=== PATIENT | male | born 1975 | race Caucasian/White ===

== ENCOUNTER 2016-08-07 12:59 | Inpatient (IN) | payer MEDICAID ==
[~2016-08-07] VITALS: Ht 172.7 cm; Wt 66.3 kg
--- NOTE | ~2016-08-07 | HEMODYNAMI ---
PATIENT:ESTRELLA JIMÉNEZ MEDICAL RECORD: [id number] : 77 [id number] ADMISSION DATE: 08/07/16 Generatedon:08/09/201611:55 Patient name: ESTRELLA JIMÉNEZ Patient #: [id number] SSN: : [id number] Date of study: 08/09/2016 Page: Of Hemodynamic Procedure Report Patient Data Patient Demographics Procedure consent was obtained First Name: ESTRELLA Gender: Male Last Name: TINO : 1975 Middle Initial: YOBANI Age: 41 year(s) Patient #: [id number] Race: Unknown Additional ID: [id number] Contact details [address]: [address] [place] Zip code: [address] Admission Admission Data Admission Date: 08/07/2016 Admission Time: 12:59 Room #: D2134 Height (in.): 68 BSA: 1.76 (m2) Height (cm.): 172.72 BMI: 21.29 (kg/m2) Weight (lbs.): 140 Weight (kg.): 63.5 Procedure Procedure Types Cath Procedure Peripheral Cath Diagnostic Procedure Cath Peripheral Biliary Biliary Drain External Procedure Description Procedure Date Procedure Date: 08/09/2016 Procedure Start Time: 10:56 Procedure Staff Name Function Franco Aguilar MD Performing Physician Kumar Souza RT Scrub Rafaela Pal RN Nurse Ayaka Daniel RT Fence Making Machine Operator Ayaka Daniel RT Monitor Mayar Harris RN Nurse Catalina Ortiz CRNA Additional personnel Procedure Data Cath Procedure Fluoroscopy Diagnostic fluoroscopy Total fluoroscopy Time: time: 19.1 min 19.1 min Diagnostic fluoroscopy Total fluoroscopy dose: 691 dose: 691 mGy mGy Contrast Material Contrast Material Type Amount (ml) Isovue 300 55 Diagnostic catheters Device Type Used For End Catheter Placement Merit Impress KA 2 5Fr 40CM catheter Hemodynamics Rest BSA: 1.76 (m2) O2 Consumption: Estimated: 208.37 (ml/min) O2 Consumption indexed : Estimated:118.39 (ml/min/m) Heart Rate: 60 (bpm) Snapshots Pre Cath Intra NCS Post Cath Vital Signs Time Heart Resp SPO2 NIBP (mmHg) Rhythm Pain Sedation Rate (ipm) (%) Status Level (bpm) 10:44:55 100 124/64(85) NSR 0 (11) 10(A) , No pain 10:49:07 70 9 99 111/70(77) NSR 0 (11) 10(A) , No pain 10:53:17 65 18 99 105/68(89) NSR 0 (11) 10(A) , No pain 10:57:21 77 10 98 113/76(92) NSR 0 (11) 10(A) , No pain 11:01:33 74 6 97 109/67(87) NSR 0 (11) 10(A) , No pain 11:05:41 74 6 97 112/67(84) NSR 0 (11) 10(A) , No pain 11:09:47 74 8 97 122/77(93) NSR 0 (11) 10(A) , No pain 11:13:56 73 8 96 131/75(103) NSR 0 (11) 10(A) , No pain 11:18:08 71 7 96 127/76(105) NSR 0 (11) 10(A) , No pain 11:22:18 70 5 96 124/82(103) NSR 0 (11) 10(A) , No pain 11:26:30 69 6 97 125/73(95) NSR 0 (11) 10(A) , No pain 11:30:38 68 5 95 124/80(113) NSR 0 (11) 10(A) , No pain 11:34:50 71 3 97 119/69(106) NSR 0 (11) 10(A) , No pain 11:38:58 69 5 96 129/75(102) NSR 0 (11) 10(A) , No pain 11:43:08 67 6 95 124/77(100) NSR 0 (11) 10(A) , No pain 11:47:15 71 19 95 132/83(109) NSR 0 (11) 10(A) , No pain 11:51:27 82 5 96 133/80(96) NSR 0 (11) 10(A) , No pain 11:54:11 75 10 98 142/83(118) NSR 0 (11) 10(A) , No pain Procedure Log Time Note 10:04:33 Patient Height : 68 cm 10:04:37 Patient Weight : 140 kg 10:06:36 Use device set IR Diagnostic 10:06:38 Sterile Angiographic Pack opened to sterile field. 10:06:39 Bag Decanter opened to sterile field. 10:06:50 CHIBA 22 X 15 needle opened to sterile field. 10:20:17 Time tracking: Regular hours 10:21:15 Dr Aguilar in the room. Talking with patient about procedure. 10:21:40 IV patent on arrival in port with 0.9% NaCl at KVO. 10:23:04 Plan of Care:Hemodynamics will remain stable., Cardiac rhythm will remain stable., Comfort level will be maintained., Respiratory function will remain adequate., Patient/ family verbilizes understanding of procedure., Procedure tolerated without complication., Recovers from procedure without complications.. 10:23:16 Signed procedure consent form obtained from patient. 10:23:26 H&P Date Dictated: 08/09/2016 Within 30 days and on chart.. 10:23:31 Pre-procedure instructions explained to patient. 10:23:32 Pre-op teaching completed and patient verbalized understanding. 10:23:34 Family in waiting room. 10:23:37 Patient NPO since Midnight. 10:24:16 Is the patient allergic to Iodine/contrast media? No. 10:24:39 Right abdomen area was prepped with chlora-prep and draped in sterile fashion 10:26:38 KIT, INTRODUCER ACCUSTICK II W/C opened to sterile field. 10:27:41 Sharps counted by scrub and verified by R.N. 10:27:42 - 10:28:06 SEE ANESTHESIA NOTES FOR MONITORING OF PATIENT DURING PROCEDURE 10:43:37 ECG and BP/O2 sat monitors applied to patient. 10:43:38 Vital chart was started 10:43:41 Baseline sample Acquired. 10:43:42 Full Disclosure recording started 10:43:43 - 10:54:40 Physician arrived 10:55:02 --------ALL STOP TIME OUT------ 10:55:03 Final Timeout: patient, procedure, and site verified with staff and physician. All members of the team are in agreement. 10:56:47 Procedure started. 10:56:53 Local anesthetic to Abdominal area with Lidocaine 1% by Franco Aguilar MD.INITIAL ACCESS ONLY 10:57:20 Physical assessment completed. ASA score P 3 - A patient with severe systemic disease as per Catalina Ortiz CRNA. 10:57:27 Sedation plan: TIVA Propofol 11:07:19 BAG, DRAINAGE EMPTY 600ML W/DERECK opened to sterile field. 11:08:09 STOPCOCK 3-WAY LARGE BORE opened to sterile field. 11:11:45 CHIBA 22 X 15 needle opened to sterile field. 11:32:12 EV3 NITINOL .018 80CM guide wire opened to sterile field. 11:35:07 Terumo ANGLE 180L glide wire opened to sterile field. 11:37:29 Terumo TORQUE DEVICE PLASTIC .038 opened to sterile field. 11:37:39 Terumo ANGLED SS 260CM glide wire opened to sterile field. 11:39:12 Cook DOC .035 guide wire opened to sterile field. 11:39:24 A Merit Impress KA 2 5Fr 40CM catheter was advanced over the wire and used for . 11:42:49 Cook BILIARY 10.2 FR drainage catheter opened to sterile field. 11:51:08 Procedure ended.(Physican Out) 11:51:14 Fluoroscopy time 19.10 minutes. 11:51:22 Fluoroscopy dose: 691 mGy 11:51:22 Flurop Dose total: 691 11:51:26 Contrast amount:Isovue 300 55ml. 11:51:28 Sharps counted by scrub and verified by R.N. 11:51:43 Procedure and supply charges have been captured, reviewed, submitted an d are correct. 11:55:52 Vital chart was stopped Device Usage Item Name Manufacture Quantity Catalog Hospital Part Current Minimal Lot# / Number Charge Number Stock Stock Serial# Code Diann Cardinal 1 [id number] 5 Angiographic Health Pack Bag Decanter Microtek 1 2001S [id number] 64127 892178 5 Medical Inc. CHIBA 22 X Cook Medical 2 [id number] 389233 666470 5 15 needle KIT, [place] 1 [id number] 607683 543392 535107 5 INTRODUCER Scientific ACCUSTICK II W/C BAG, Merit 1 [id number] 714581 116253 861513 5 DRAINAGE Medical EMPTY 600ML W/DERECK STOPCOCK Cook Medical 1 [id number] 386614 4366 739499 5 3-WAY LARGE BORE EV3 NITINOL Ev3 1 [id number] 490144 515034 5 .018 80CM guide wire Terumo ANGLE Terumo 1 [id number] 734349 279218 651818 5 180L glide wire Terumo [place] 1 TD01 376125 721706 770330 5 TORQUE Scientific DEVICE PLASTIC .038 Terumo Terumo 1 [id number] 366241 789765 859396 5 ANGLED SS 260CM glide wire Cook DOC Cook Medical 1 V25325 961731 433032 5 2149096 .035 guide wire Merit Merit 1 [id number] 872477 969214 5 Impress KA 2 Medical 5Fr 40CM catheter Cook BILIARY Cook Medical 1 [id number] 519850 302101 486517 5 [id number] 10.2 FR drainage catheter Signature Audit [place] Stage Time Signature Unsigned Intra-Procedure 08/09/2016 Ayaka Daniel 11:55:49 AM RT(R) Signatures Monitor : Ayaka Daniel RT Signature : Date : Time : [facility] [address] [place] [address]
--- NOTE | ~2016-08-07 | HEMODYNAMI ---
PATIENT:ESTRELLA JIMÉNEZ MEDICAL RECORD: [id number] : 77 [facility] [id number] ADMISSION DATE: 08/07/16 Generatedon:08/11/201614:38 Patient name: ESTRELLA JIMÉNEZ Patient #: [id number] SSN: : [id number] Date of study: 08/11/2016 Page: Of Hemodynamic Procedure Report Patient Data Patient Demographics Procedure consent was obtained First Name: ESTRELLA Gender: Male Last Name: TINO : 1975 Middle Initial: YOBANI Age: 41 year(s) Patient #: [id number] Race: Unknown Additional ID: [id number] Contact details Address: [address] State: [facility] Zip code: [address] Admission Admission Data Admission Date: 08/07/2016 Admission Time: 12:59 Room #: D2134 Height (in.): 68 BSA: 1.76 (m2) Height (cm.): 172.72 BMI: 21.29 (kg/m2) Weight (lbs.): 140 Weight (kg.): 63.5 Procedure Procedure Types Cath Procedure Peripheral Cath Diagnostic Procedure Biliary Biliary Biopsy Miscellaneous Procedure Description Procedure Date Procedure Date: 08/11/2016 Procedure Start Time: 13:27 Procedure Staff Name Function Franco Aguilar MD Performing Physician Luciana Xavier RT Scrub Rafaela Pal RN Nurse Kumar Souza RT Monitor Procedure Data Cath Procedure Fluoroscopy Diagnostic fluoroscopy Total fluoroscopy Time: time: 13.8 min 13.8 min Diagnostic fluoroscopy Total fluoroscopy dose: 372 dose: 372 mGy mGy Contrast Material Contrast Material Type Amount (ml) Isovue 300 30 Hemodynamics Rest BSA: 1.76 (m2) O2 Consumption: Estimated: 225.98 (ml/min) O2 Consumption indexed : Estimated:128.4 (ml/min/m) Heart Rate: 86 (bpm) Snapshots Pre Cath Intra NCS Post Cath Vital Signs Time Heart Resp SPO2 NIBP (mmHg) Rhythm Pain Sedation Rate (ipm) (%) Status Level (bpm) 13:16:32 83 16 100 135/75(94) NSR 0 (11) 10(A) , No pain 13:20:50 91 12 99 113/72(87) NSR 0 (11) 10(A) , No pain 13:24:57 88 13 99 125/72(94) NSR 0 (11) 10(A) , No pain 13:29:03 85 16 98 123/79(104) NSR 0 (11) 10(A) , No pain 13:33:13 81 14 99 133/77(98) NSR 0 (11) 10(A) , No pain 13:37:27 85 13 98 127/73(93) NSR 0 (11) 10(A) , No pain 13:41:41 81 12 99 135/69(114) NSR 0 (11) 10(A) , No pain 13:45:53 83 14 98 128/78(95) NSR 0 (11) 10(A) , No pain 13:50:05 84 12 98 126/67(88) NSR 0 (11) 10(A) , No pain 13:54:15 82 10 98 126/75(89) NSR 0 (11) 10(A) , No pain 13:58:27 81 62 98 118/68(98) NSR 0 (11) 10(A) , No pain 14:02:35 82 10 98 120/75(91) NSR 0 (11) 10(A) , No pain 14:06:44 83 13 98 120/69(96) NSR 0 (11) 10(A) , No pain 14:10:55 80 19 99 131/72(92) NSR 0 (11) 10(A) , No pain 14:15:02 86 18 98 116/70(108) NSR 0 (11) 10(A) , No pain 14:19:08 76 17 99 131/77(101) NSR 0 (11) 10(A) , No pain 14:23:18 79 28 99 135/81(94) NSR 0 (11) 10(A) , No pain 14:27:30 71 20 99 139/82(112) NSR 0 (11) 10(A) , No pain 14:32:04 78 18 98 No Cuff NSR 0 (11) 10(A) , No pain 14:36:04 No Cuff NSR 0 (11) 10(A) , No pain Procedure Log Time Note 12:42:38 Patient Height : 68 cm 12:42:38 Patient Weight : 140 kg 13:03:33 Kumar Souza RT (R) (CV) sent for patient. Start room use. 13:03:50 Time tracking: Regular hours 13:03:57 Plan of Care:Hemodynamics will remain stable., Cardiac rhythm will remain stable., Comfort level will be maintained., Respiratory function will remain adequate., Patient/ family verbilizes understanding of procedure., Procedure tolerated without complication., Recovers from procedure without complications.. 13:04:13 Patient received from [employer] to IR Alert and oriented. Tansferred to table in Supine position. 13:04:15 Correct patient and procedure confirmed by team. 13:04:15 Warm blankets applied, and fred hugger turned on for patient comfort. 13:04:17 Signed procedure consent form obtained from patient. 13:04:18 ECG and BP/O2 sat monitors applied to patient. 13:04:20 - 13:04:36 SEE ANESTHESIA NOTE FOR PRE PROCEDURE TIVA 13:04:38 - 13:04:44 Use device set IR Diagnostic 13:04:45 Bag Decanter opened to sterile field. 13:04:46 Sterile Angiographic Pack opened to sterile field. 13:04:52 PARRISH LANDIS FROM ANESTHESIA HERE 13:15:25 Vital chart was started 13:15:26 Baseline sample Acquired. 13:15:30 Rhythm: sinus rhythm 13:25:34 Physician arrived 13:25:35 --------ALL STOP TIME OUT------ 13:25:35 Final Timeout: patient, procedure, and site verified with staff and physician. All members of the team are in agreement. 13:25:38 Right abdomen site verified by team. 13:25:47 Physical assessment completed. ASA score P 3 - A patient with severe systemic disease as per Franco Aguilar MD. 13:25:51 Sedation plan: IV Moderate Sedation Propofol 13:27:13 Procedure started. 13:27:14 Full Disclosure recording started 13:27:36 Local anesthetic to Abdominal area with Lidocaine 1% by Franco Aguilar MD.INITIAL ACCESS ONLY 13:29:23 Terumo ANGLED SS 260CM glide wire opened to sterile field. 13:31:29 Terumo 5FR ANGLED 65CM glide catheter opened to sterile field. 13:35:03 Micropuncture VSI 4FR kit opened to sterile field. 13:36:27 [place] [employer] AMPLATZ Super stiff 180cm guide wire opened to sterile field . 13:37:09 ARROW SUPERFLEX 8FR 45CM sheath opened to sterile field. 13:37:14 [place] [employer] AMPLATZ Super stiff 180cm guide wire opened to sterile field . 13:41:55 Cook BILIARY 10.2 FR drainage catheter opened to sterile field. 13:49:22 STOPCOCK 3-WAY LARGE BORE opened to sterile field. 13:58:21 EV3 NITINOL .014 300CM guide wire opened to sterile field. 14:15:44 SUTURE ETHILON 2-0 BLK MONO FS opened to sterile field. 14:23:49 Procedure ended.(Physican Out) 14:23:56 Fluoroscopy time 13.80 minutes. 14:24:04 Fluoroscopy dose: 372 mGy 14:24:04 Flurop Dose total: 372 14:24:10 Contrast amount:Isovue 300 30ml. 14:24:14 Sharps counted by scrub and verified by R.N. 14:24:21 Insertion/operative site no bleeding no hematoma. 14:24:38 Post-op/insertion site Right Abdominal area dressed using a 4 x 4 and Tegaderm. 14:29:17 Post Abdominal area:stable 14:29:23 Post-procedure physical assessment completed. ASA score P 3 - A patient with severe systemic disease as per Franco Aguilar MD. 14:29:24 Post procedure instruction explained to patient.Patient verbalizes understanding. 14:29:25 Procedure and supply charges have been captured, reviewed, submitted an d are correct. 14:29:44 Report given to [facility] II. 14:29:53 Patient transfered to [facility] with Bed. 14:38:09 Vital chart was stopped Device Usage Item Name Manufacture Quantity Catalog Hospital Part Current Minima l Lot# / Number Charge Number Stock Stock Serial# Code Bag Decanter Microtek 1 2002S [id number] 24055 [id number] 5 Medical Inc. Sterile Cardinal 1 [id number] 560582 671460 5 Angiographic Health Pack Terumo ANGLED Terumo 1 [id number] 806947 605789 381481 5 SS 260CM glide wire Terumo 5FR Terumo 1 [id number] 885722 478809 5 ANGLED 65CM glide catheter Micropuncture VSI VASCULAR 1 7266V 920540 167918 5 VSI 4FR kit SOLUTIONS [place] [employer] [place] 2 [id number] 060033 530907 5 [id number] AMPLATZ Super Scientific [id number] stiff 180cm guide wire ARROW Teleflex 1 [id number] 977427 564908 5 SUPERFLEX 8FR 45CM sheath Cook BILIARY Cook Medical 1 [id number] 027948 953120 648124 5 10.2 FR drainage catheter STOPCOCK [employer] 1 [id number] 884471 1994 105501 5 [id number] 3-WAY LARGE BORE EV3 NITINOL Ev3 1 [id number] 721571 862564 5 [id number] .014 300CM guide wire SUTURE Ethicon 1 [id number] 031239 675712 5 ETHILON 2-0 BLK MONO FS Signature Audit [place] Stage Time Signature Unsigned Intra-Procedure 08/11/2016 Kumar 2:38:07 PM [place] RT (R) (CV) Signatures Monitor : Kumar Signature : Libby RT Date : Time : [facility] [address] [place] [address]
[2016-08-07] MEDS ORDERED: PHENERGAN25 M1 PO (13:29)
[2016-08-07] MEDS ORDERED: LYRICA100 MG PO (13:29)
[2016-08-07] MEDS ORDERED: ATIVAN1 MG PO (13:30)
[2016-08-07] MEDS ORDERED: MARINOL5 MG PO (13:31)
[2016-08-07] MEDS ORDERED: ROXICODONE15 MG PO (13:32)
[2016-08-07] MEDS ORDERED: DURAGESIC1 PATCH .3 TRANSDERM (13:32)
[2016-08-07] MEDS ORDERED: TOPAMAX25 MG PO (13:33)
[2016-08-07] MEDS ORDERED: DURAGESIC1 PATCH .1 TRANSDERM (13:33)
[2016-08-07] MEDS ORDERED: PROTONIX20 MG PO (13:34)
[2016-08-07] MEDS ORDERED: CIALIS5 MG PO (13:34)
[2016-08-07] MEDS ORDERED: ZOFRAN ODT4 MG/UDTAB PO (13:35)
[2016-08-07] MEDS ORDERED: ZOFRAN8 MG PO (13:36)
[2016-08-07 15:51] VITALS: BP 115/77
--- NOTE | 2016-08-07 16:00 | NUR ---
LEFT CHEST INFUSA PORT ACCESSED VIA GOPAL SALAZAR RN. 20 GUAGE 0.75CM HUEBER NEEDLE USED. INITIATED PTS IV FLUIDS OF NS @4OML/HR ORDERED. SITE HAS BIOPATCH AND DRSG CDI, SWAB CAPS IN USE. WILL CPOC.
[2016-08-07 17:56] LABS: INR 1.17 (0.85-1.17); PROTIME 14.8 SECONDS (11.6-15.0)
[2016-08-07 17:57] LABS: APTT 34.6 SECONDS (22.8-39.4)
[2016-08-07 18:04] VITALS: BP 138/80; BMI 21.3
[2016-08-07 18:09] LABS: ALBUMIN 2.8 g/dL (3.4-5.0); ALKALINE PHOSPHATASE 602 U/L (46-116); ALT (SGPT) 207 U/L (10-68); AMYLASE - SERUM 32 U/L (25-115); BILIRUBIN - TOTAL 20.52 mg/dL (0.2-1.3); CALC OSMOLALITY 275 mosm/kg (275-300); CALCIUM 8.9 mg/dL (8.5-10.1); CARBON DIOXIDE 25.6 mmol/L (21.0-32.0); CHLORIDE - SERUM 101 mmol/L (98-107); CREATININE - SERUM 0.8 mg/dL (0.6-1.3); GLUCOSE 152 mg/dL (74-106); LIPASE 206 U/L (73-393); POTASSIUM - SERUM 3.6 mmol/L (3.5-5.1); PROTEIN - SERUM 6.1 g/dL (6.4-8.2); SODIUM 136 mmol/L (136-145); UREA NITROGEN 14 mg/dL (7-18); eGFR NON AFRICAN AMERICAN > 90 mL/min (90-120)
[2016-08-07 18:42] LABS: BASOPHILS 0.8 % (0-2); EOSINOPHILS 2.8 % (0-7); HEMATOCRIT 32.9 % (42.0-54.0); HEMOGLOBIN 11.1 g/dL (13.5-17.5); IMMATURE GRANULOCYTES 0.4 % (0-5); LYMPHOCYTES 14.5 % (15-50); MCH 28.2 pg (26.0-34.0); MCHC 33.7 g/dL (31.0-37.0); MCV 83.7 fL (80.0-100.0); MEAN PLATELET VOLUME 11.6 fL (7.4-10.4); MONOCYTES 9.2 % (2-11); NEUTROPHILS 72.3 % (40-80); PLATELET COUNT 258 10x3/uL (130-400); RBC 3.93 10x6/uL (4.20-6.10); RDW 18.7 % (11.5-14.5); WBC 9.7 10x3/uL (4.8-10.8)
--- NOTE | 2016-08-07 19:18 | NUR ---
ASSESSMENT COMPELTE, NO S/S DISTRESS NOTED, WILL CONT TO MONITOR.
--- NOTE | 2016-08-07 19:34 | NUR ---
ASSESSMENT COMPLETE, A&O. PT STATED THAT HE IS HUNGRY AND HAD BEEN ASKING FOR SOMETHING TO EAT FOR A WHILE, SANDWHICH TRAY, JELLO AND COLA GIVEN AT PT REQUEST.
[2016-08-07 19:49] VITALS: BP 114/65
--- NOTE | 2016-08-07 23:05 | NUR ---
AMBULATING IN SAGE WITH , GAIT STEADY.
[2016-08-07 23:50] VITALS: BP 107/60
--- NOTE | 2016-08-08 00:04 | NUR ---
REGIONAL CLINICAL RESEARCH ASSOCIATE AT BEDSIDE FOR VS. NEEDS ADDRESSED. CALL LIGHT IN REACH. WILL CONT TO MONITOR.
--- NOTE | 2016-08-08 00:07 | NUR ---
BENADRYL 25 MG AND OXYCODONE 15 MG GIVEN FOR C/O PAIN AND ITCING. RECLINER CHAIR TAKEN TO ROOM FOR TO SLEEP IN.
--- NOTE | 2016-08-08 02:15 | NUR ---
RESTING WITH EYES CLOSED, RESPERATIONS EVEN, NO S/S DISTRESS NOTED.
[2016-08-08 03:39] VITALS: BP 112/62
[2016-08-08 05:30] LABS: BASOPHILS 1.1 % (0-2); EOSINOPHILS 3.3 % (0-7); HEMATOCRIT 32.6 % (42.0-54.0); IMMATURE GRANULOCYTES 0.4 % (0-5); LYMPHOCYTES 17.6 % (15-50); MCH 28.2 pg (26.0-34.0); MCHC 33.7 g/dL (31.0-37.0); MCV 83.6 fL (80.0-100.0); MEAN PLATELET VOLUME 11.4 fL (7.4-10.4); MONOCYTES 9.7 % (2-11); NEUTROPHILS 67.9 % (40-80); PLATELET COUNT 254 10x3/uL (130-400); RDW 19.1 % (11.5-14.5); WBC 8.6 10x3/uL (4.8-10.8)
[2016-08-08 06:14] LABS: ALBUMIN 2.6 g/dL (3.4-5.0); ALKALINE PHOSPHATASE 559 U/L (46-116); ALT (SGPT) 191 U/L (10-68); BILIRUBIN - TOTAL 18.75 mg/dL (0.2-1.3); CALC OSMOLALITY 280 mosm/kg (275-300); CALCIUM 9.2 mg/dL (8.5-10.1); CHLORIDE - SERUM 104 mmol/L (98-107); CREATININE - SERUM 0.8 mg/dL (0.6-1.3); GLUCOSE 137 mg/dL (74-106); POTASSIUM - SERUM 3.7 mmol/L (3.5-5.1); PROTEIN - SERUM 6.5 g/dL (6.4-8.2); SODIUM 139 mmol/L (136-145); UREA NITROGEN 15 mg/dL (7-18); eGFR NON AFRICAN AMERICAN > 90 mL/min (90-120)
--- NOTE | 2016-08-08 07:10 | NUR ---
RECEIVED REPORT. ASSUMED CARE OF PATIENT. PATIENT SITTING TO CHAIR AT BEDSIDE. FEMALE VISITOR (SPOUSE) LYING IN PATIENT BED AWAKE. PATIENT DENIES ANY NEEDS AT THIS TIME. CALL LIGHT WITHIN REACH. NO DISTRESS.
--- NOTE | 2016-08-08 07:30 | NUR ---
PATIENT REQUESTED TO BE DISCONNECTED FROM IV SO HE CAN AMBULATE. IV FLUIDS WERE RUNNING AT KVO, STOPPED AND PATIENT IS SALINE LOCKED AT THIS TIME.
[2016-08-08 07:58] VITALS: BP 109/71
--- NOTE | 2016-08-08 09:45 | NUR ---
PATIENT AND SPOUSE AMBULATING ON UNIT. NO DISTRESS.
[2016-08-08 15:58] VITALS: BP 119/55
--- NOTE | 2016-08-08 16:25 | NUR ---
RATIONALE FOR SCD'S EXPLAINED. REFUSED SCD'S
--- NOTE | 2016-08-08 19:21 | NUR ---
CONSENTS SIGNED AND PLACED ON PATIENT CHART AT THIS TIME.
--- NOTE | 2016-08-08 19:40 | NUR ---
PT NOT IN ROOM. WAS TOLD BY DAY NURSE THAT PT IS UP AMBULATING THE HALLS WITH HIS .
--- NOTE | 2016-08-08 20:05 | NUR ---
PT BACK IN ROOM. ASSESSEMENT DONE. PT A/O. DENIES NEEDS. NO DISTRESS NOTED. VISITORS IN ROOM. CALL LIGHT WITH IN REACH. WILL CONT. TO MONITOR.
[2016-08-08 20:44] VITALS: BP 127/76
--- NOTE | 2016-08-08 22:14 | NUR ---
PT AMBULATING IN SAGE WITH SPOUSE. A/O. GAIT STEADY. NO DISTRESS NOTED.
[2016-08-08 23:58] VITALS: BP 112/63
[2016-08-09] VITALS (10 sets, daily range): BP systolic 101–121; BP diastolic 60–80; Ht 172.7 cm; Wt 66.3 kg
--- NOTE | 2016-08-09 00:08 | NUR ---
PT SLEEPING. SPOUSE IN BED WITH HIM. NO DISTRESS NOTED. CALL LIGHT WITH IN REACH. WILL CONT. TO MONITOR.
--- NOTE | 2016-08-09 02:11 | NUR ---
PT UP AMBULATING IN HALLS WITH SPOUSE. C/O ITCHING. PO BENADRYL GIVEN.
[2016-08-09 05:25] LABS: BASOPHILS 0.9 % (0-2); EOSINOPHILS 2.6 % (0-7); HEMATOCRIT 30.5 % (42.0-54.0); HEMOGLOBIN 10.4 g/dL (13.5-17.5); IMMATURE GRANULOCYTES 0.5 % (0-5); LYMPHOCYTES 17.9 % (15-50); MCH 28.8 pg (26.0-34.0); MCHC 34.1 g/dL (31.0-37.0); MCV 84.5 fL (80.0-100.0); MEAN PLATELET VOLUME 11.2 fL (7.4-10.4); MONOCYTES 9.4 % (2-11); NEUTROPHILS 68.7 % (40-80); PLATELET COUNT 207 10x3/uL (130-400); RBC 3.61 10x6/uL (4.20-6.10); RDW 19.9 % (11.5-14.5); WBC 9.3 10x3/uL (4.8-10.8)
--- NOTE | 2016-08-09 05:33 | NUR ---
PT AMBULATING IN SAGE. NO DISTRESS NOTED. PT REMAINDS NPO SINCE UT.
[2016-08-09 05:38] LABS: ALBUMIN 2.5 g/dL (3.4-5.0); ALKALINE PHOSPHATASE 507 U/L (46-116); ALT (SGPT) 161 U/L (10-68); BILIRUBIN - TOTAL 17.57 mg/dL (0.2-1.3); CALC OSMOLALITY 278 mosm/kg (275-300); CALCIUM 8.9 mg/dL (8.5-10.1); CARBON DIOXIDE 23.3 mmol/L (21.0-32.0); CHLORIDE - SERUM 105 mmol/L (98-107); CREATININE - SERUM 0.7 mg/dL (0.6-1.3); GLUCOSE 148 mg/dL (74-106); POTASSIUM - SERUM 4.2 mmol/L (3.5-5.1); PROTEIN - SERUM 6.4 g/dL (6.4-8.2); SODIUM 137 mmol/L (136-145); UREA NITROGEN 19 mg/dL (7-18); eGFR NON AFRICAN AMERICAN > 90 mL/min (90-120)
--- NOTE | 2016-08-09 07:04 | NUR ---
DURING BEDSIDE REPORT PT SIG OTHER ASKED ME WHERE THE NURSE WAS FROM YESTERDAY. I ASKED WHO THE NURSE WAS YESTERDAY. SHE REPLIED, "LISSY." I EXPLAINED TO HER THAT LISSY WAS NOT HERE TODAY. SHE BECAME ANGRY AND SAID THAT THEY HAVE A NEW NURSE EVERY DAY AND THAT IT IS FRUSTRATING. I TOLD HER THAT WE ALL WORK DIFFERENT DAYS AND ONE NURSE CAN NOT BE HERE 7 DAYS A WEEK. PT IS TELLING SIG OTHER TO CALM DOWN AND NOT BE MEAN. SHE REPLIES "I AM NOT!, I JUST WANT THE SAME NURSE EVERY DAY IS THAT TOO MUCH TO ASK FOR??". WILL CONT TO MONITOR
--- NOTE | 2016-08-09 12:18 | NUR ---
PT BACK FROM IR FROM BILIARY DRAIN PLACEMENT. PT LETHARGIC ARROUSES TO STIMULI. DRAIN NOTED TO R ABDOMEN. VS 120/74 HR 54 O2 SAT 98% ON 1L NC RR 14. WILL CONT TO MONITOR PT AND CONT FREQUENT VS.
--- NOTE | 2016-08-09 13:01 | NUR ---
PT AWAKE BUT STILL GROGGY, VS ARE STILL WNL. FAMILY AT BEDSIDE.
--- NOTE | 2016-08-09 13:08 | NUR ---
STUDENT NURSE CHANGED PT LEFT CHEST IP DRESSING STERILE TECHNIQUE INITITATED. SIGNED AND DATED. SWAB CAPS IN USE.
--- NOTE | 2016-08-09 13:54 | NUR ---
PT SITTING UP IN BED SLEEPING NO S/S DISTRESS NOTED VS ARE STILL WNL. AT BEDSIDE ALSO SLEEPING WILL CONT TO MONITOR
--- NOTE | 2016-08-09 14:55 | NUR ---
PT CO PAIN 10/10 IN ABDOMEN. PT AND PT ARE SAYING THE OXY 15MG THAT HE HAS IS "NOT GOING TO DO SHIT". AND REQUESTING IV PAIN MEDICATION. NOTHING IS ORDERED. PAGED JEREMIAH MCLEOD.
--- NOTE | 2016-08-09 15:17 | NUR ---
DR COOLEY ORDERED TORADOL, ORDER WAS PLACED. WENT IN TO GIVE MEDICATION AND PT AND PT ARE VERY UPSET TELLING ME THAT IT WILL NOT WORK AND THAT THEY GAVE PT DILAUDID THE OTHER DAY AND THAT HELPED. EXPLAINED TO PT AND PT THAT WE CAN TRY THE TORADOL AND OXY COMBO LIKE DR COOLEY SAID AND THEN REEVALUATE IF IT DOESNT WORK. PT AGREED TO TAKE MEDICATION WILL REEVALUATE DURING DESIGNATED TIME.
--- NOTE | 2016-08-09 16:09 | NUR ---
TALKED WITH JEREMIAH MCLEOD, SHE SAID THERE WAS NOTHING ELSE THEY COULD GIVE HIM RIGHT NOW FOR PAINN. PT IS ON A LOT OF PAIN MEDS, SAID TO GIVE MEDICATION MORE TIME TO WORK.
--- NOTE | 2016-08-09 21:55 | NUR ---
PAGEBeny GARCIA APN FOR PT'S REPORTS OF UNRESOLVED PAIN.
--- NOTE | 2016-08-09 22:37 | NUR ---
RETURN CALL FROM JEREMIAH MCLEOD, REPORTED PT'S C/O NOT BEING GIVEN ENOUGH PAIN MEDICATION. JEREMIAH FAMILIAR WITH PATIENT AND THAT HE HAD BILIARY DRAIN PLACED TODAY AND THAT DR COOLEY HAD GIVEN A TORADOL ORDER. JEREMIAH REQUESTED THAT MD THAT ORDERED THE ORIGINAL OXYCODONE NEEDED TO CONTACTED ABOUT PATIENTS CONCERNS THAT IT WAS NOT SUFFICIENT. DETERMINED THAT DR FITZPATRICK HAD ORDERED THE CURRENT PAIN MEDS AND HAVE PLACED A PAGE OUT TO SPEAK WITH HER.
--- NOTE | 2016-08-09 23:00 | NUR ---
NO RETURN CALL FROM DR FITZPATRICK AFTER TWO CALLS. NOTED THAT PT HAD LEFT TO GO OUTSIDE AND HAS NOW RETURNED AND HIS DOOR IS CLOSED. WILL LET PT REST AND IF HE TURNS CALL LIGHT ON, THEN EXPLAIN THAT NO NEW ORDERS FROM JEREMIAH GARCIA AND NO RETURN CALL FROM DR FITZPATRICK.
[2016-08-10] VITALS: BP 107/66
[2016-08-10 04:00] VITALS: BP 121/71
--- NOTE | 2016-08-10 05:19 | NUR ---
PT HAS STAYED QUIETLY TO HIS ROOM WITH HIS SINCE THE BEGINNING OF THE SHIFT. HE DID CALL OUT FOR PAIN MED ONE OTHER TIME, AND WAS GIVEN PO OXYCODONE AND IV TORADOL. AT THIS TIME. PROVIDED HIM THE DETAILS OF ALL THE PHONE CALLS THAT WERE MADE ON HIS BEHALF LAST NIGHT AND THE INABILITY TO GET ANY NEW ORDERS. PT CALM, VOICING HIS CONCERNS ABOUT HIS PAIN CONTROL. WILL HAVE DAY NURSE FOLLOW UP WITH DR FITZPATRICK WITH PT'S PAIN MED CONCERNS. COLLECTED BLOOD FROM LEFT PORT. PT NOW BACK TO RESTING.
[2016-08-10 05:29] LABS: BASOPHILS 0.2 % (0-2); EOSINOPHILS 1.9 % (0-7); HEMATOCRIT 33.6 % (42.0-54.0); HEMOGLOBIN 11.3 g/dL (13.5-17.5); IMMATURE GRANULOCYTES 0.6 % (0-5); LYMPHOCYTES 9.4 % (15-50); MCH 28.8 pg (26.0-34.0); MCHC 33.6 g/dL (31.0-37.0); MCV 85.7 fL (80.0-100.0); MEAN PLATELET VOLUME 11.8 fL (7.4-10.4); NEUTROPHILS 81.9 % (40-80); PLATELET COUNT 235 10x3/uL (130-400); RBC 3.92 10x6/uL (4.20-6.10); RDW 20.2 % (11.5-14.5); WBC 12.2 10x3/uL (4.8-10.8)
[2016-08-10 05:38] LABS: ALBUMIN 2.8 g/dL (3.4-5.0); ALKALINE PHOSPHATASE 497 U/L (46-116); ALT (SGPT) 153 U/L (10-68); BILIRUBIN - TOTAL 9.85 mg/dL (0.2-1.3); CALC OSMOLALITY 275 mosm/kg (275-300); CALCIUM 9.1 mg/dL (8.5-10.1); CHLORIDE - SERUM 103 mmol/L (98-107); CREATININE - SERUM 0.8 mg/dL (0.6-1.3); GLUCOSE 146 mg/dL (74-106); PROTEIN - SERUM 7.2 g/dL (6.4-8.2); SODIUM 136 mmol/L (136-145); UREA NITROGEN 16 mg/dL (7-18); eGFR NON AFRICAN AMERICAN > 90 mL/min (90-120)
[2016-08-10 05:40] LABS: POTASSIUM - SERUM 3.5 mmol/L (3.5-5.1)
--- NOTE | 2016-08-10 07:28 | NUR ---
PT LAYING IN BED SLEEPING PT IN BATHROOM WILL CONT TO MONITOR
--- NOTE | 2016-08-10 10:41 | NUR ---
CONSENTS SIGNED FOR BIOPSY TOMORROW AND PLACED ON CHART.
[2016-08-10 11:52] VITALS: BP 104/67
--- NOTE | 2016-08-10 18:10 | NUR ---
PT SITTING UP IN BED CO PAIN PAIN MEDS WERE GIVEN PER EMAR. PT DENIES OTHER NEEDS WILL CONT TO MONITOR
--- NOTE | 2016-08-10 19:35 | NUR ---
Patient returned to his room, IV antibiotics restarted,
--- NOTE | 2016-08-10 19:49 | NUR ---
Patient resting in his room, left chest port patent dressing CDI, bed in low locked postion, call light in reach, family at bedside,
[2016-08-10 22:09] VITALS: BP 123/72
--- NOTE | 2016-08-10 22:13 | NUR ---
PRN Toradol 15 mg IV given at 2034 for pain 6 of 10.
[2016-08-11] VITALS (12 sets, daily range): BP systolic 97–127; BP diastolic 56–82
--- NOTE | 2016-08-11 00:55 | NUR ---
PRN Toradol 15 mg IV and oxycodone 30 mg PO given for pain at 0050.
--- NOTE | 2016-08-11 01:31 | NUR ---
Patient resting in bed, denies needs at this time.
[2016-08-11 06:13] LABS: BASOPHILS 0.5 % (0-2); EOSINOPHILS 2.2 % (0-7); HEMATOCRIT 36.3 % (42.0-54.0); HEMOGLOBIN 12.2 g/dL (13.5-17.5); IMMATURE GRANULOCYTES 0.7 % (0-5); LYMPHOCYTES 12.5 % (15-50); MCH 29.3 pg (26.0-34.0); MCHC 33.6 g/dL (31.0-37.0); MCV 87.1 fL (80.0-100.0); MEAN PLATELET VOLUME 11.5 fL (7.4-10.4); MONOCYTES 10.1 % (2-11); PLATELET COUNT 308 10x3/uL (130-400); RBC 4.17 10x6/uL (4.20-6.10); RDW 20.7 % (11.5-14.5); WBC 14.4 10x3/uL (4.8-10.8)
[2016-08-11 06:53] LABS: ANION GAP 14.5 mmol/L (8-16); BILIRUBIN - TOTAL 8.41 mg/dL (0.2-1.3); CALCIUM 9.5 mg/dL (8.5-10.1); CARBON DIOXIDE 23.8 mmol/L (21.0-32.0); CREATININE - SERUM 1.2 mg/dL (0.6-1.3); POTASSIUM - SERUM 3.3 mmol/L (3.5-5.1); PROTEIN - SERUM 8.2 g/dL (6.4-8.2)
--- NOTE | 2016-08-11 07:35 | NUR ---
AM ROUNDING- RECEIVED REPORT FROM HORIZONTAL DRILL OPERATOR NURSE SAMIRA. PT IS CURRENTLY LAYING IN BED ON LEFT SIDE WITH EYES OPEN RESTING. GUEST IS LAYING IN BED WITH PT. ON ROOM AIR. NO MONITOR. IV SEEN TO LEFT CHEST INFUSAPORT WITH NS RUNNING AT KVO (10CC). BILIARY DRAIN SEEN TO RIGHT SIDE OF ABDOMEN. COLOSTOMY BAG SEEN. NO NEED AT CURRENT TIME. WILL CONTINUE TO MONITOR AND CONTINUE WITH PLAN OF CARE.
--- NOTE | 2016-08-11 10:19 | NUR ---
PT GONE OUTSIDE WITH TO SMOKE.
--- NOTE | 2016-08-11 13:04 | NUR ---
PRE-OP MEDS GIVEN ORDERED. PT TO PROCEDURE VIA BED.
--- NOTE | 2016-08-11 14:52 | NUR ---
PT BACK FROM PROCEDURE VIA BED. PT IS ALERT AND ORIENTED. FREQUENT VITALS STARTED. OR NURSE STATES THAT PT CAN RESUME EATING/DRINKING. NO NEW ORDERS RECEIVED. WILL CONTINUE TO MONITOR.
--- NOTE | 2016-08-11 15:31 | NUR ---
PT IS WANTING TO GO OUTSIDE TO SMOKE. I INFORMED PT THAT DR. ABDI HAD ORDERS FOR PT TO BE ON BEDREST. PT STATES "I DON'T CARE WHAT THEY SAY IM GOING TO SMOKE". PT IS WALKING OUT OF FLOOR NOW TO GO DOWN STAIRS AND SMOKE. WILL CONTINUE TO MONITOR.
--- NOTE | 2016-08-11 15:46 | NUR ---
UNABLE TO GET SOME OF PTS FREQUENT VITAL SIGNS FOR AFTER PROCEDURE DUE TO PT BEING OFF FLOOR.
--- NOTE | 2016-08-11 15:59 | NUR ---
PT BACK FROM OUTSIDE. WILL CONTINUE TO MONITOR.
--- NOTE | 2016-08-11 16:51 | NUR ---
PT OFF UNIT TO GO OUTSIDE. WILL AWAIT PT RETURN.
--- NOTE | 2016-08-11 16:54 | NUR ---
Patient Name: ESTRELLA JIMÉNEZ Admission Status: Elective Accout number: [id number] Admission Date: 08-07-2016 : 1975 Admission Diagnosis:OBSTRUCTION OF BILE DUCT Attending: MARIYA Current LOS: 4 Anticipated DC Date: TO BE DETERMINED Planned Disposition: Home Primary Insurance: MEDICAID [place] Discharge Planning Comments: * Is the patient Alert and Oriented? Yes 0 * How many steps to enter\exit or inside your home? NONE 0 * PCP DR. VILLARREAL 0 * Pharmacy [facility] * Preadmission Environment Home with Family 0 * ADLs Independent 0 * Equipment None 0 * Other Equipment NO MEDICAL EQUIPMENT PROVIDER PREFERENCE 0 * List name and contact numbers for known caregivers / representatives who currently or will assist patient after discharge: OWEN JIMÉNEZ, SPOUSE, 0 * Community resources currently utilized None 0 * Please name any agencies selected above. NONE 0 * Additional services required to return to the preadmission environment? No 0 * Can the patient safely return to the preadmission environment? Yes 0 * Has this patient been hospitalized within the prior 30 days at any hospital? No 0 CM MET WITH PT AND SPOUSE IN ROOM TO DISCUSS DISCHARGE PLANNING AND NEEDS. PT REPORTS LIVING AT HOME INDEPENDENTLY WITH SPOUSE. PT HAS NO MEDICAL EQUIPMENT AND NO OUTSIDE SERVICES ASSISTING IN THE HOME. CM DISCUSSED AVAILABILITY OF HOME HEALTH, REHAB SERVICES AND MEDICAL EQUIPMENT. PT DENIES DISCHARGE NEEDS, REPORTS HIS WILL PICK HIM UP FOR DISCHARGE HOME. CM TO FOLLOW AND ASSIST IF NEEDED. Boom Crane Operator: Augustine Robert
--- NOTE | 2016-08-11 17:41 | NUR ---
PT IS CURRENTLY LAYING IN BED ON BACK WITH EYES OPEN RESTING. DIETRY JUST BROUGHT PT A DINNER TRAY. PT DENIES ANY FURTHER NEED AT CURRENT TIME. WILL CONTINUE TO MONITOR.
--- NOTE | 2016-08-11 18:21 | NUR ---
CALLED DR. CHAVEZ ANSWERING SERVICE TO SEE ABOUT A MEDICATION PT TAKES DAILY THAT PT IS WANTING TO HELP STIMULATE AN APPETITE (MARINOL). AWAITING CALLBACK. 1800- RECEIVED CALLBACK FROM DR. COOLEY. INFORMED DR. COOLEY THAT PT IS WANTING HIS MARINOL PILL TO HELP WITH HIS APPETITE. DR. COOLEY STATED TO RESTART PTS MEDICATION. WILL DO ORDERED AND CONTINUE TO MONITOR.
--- NOTE | 2016-08-11 20:15 | NUR ---
PT ASKED TO BE DISCONNECTED FROM IV MACHINE SO THAT HE CAN FOR OUT SIDE WITH HIS .
--- NOTE | 2016-08-11 21:20 | NUR ---
HS MEDS GIVEN WITH FRESH ICE WATER. PT DENIES NEEDS AT THIS TIME, BED LOW, CL IN REACH.
--- NOTE | 2016-08-11 21:50 | NUR ---
DILAUDID 1 MG GIVEN FOR C/O PAIN, RATES PAIN AT A 5 ON PAIN SCALE. HS SNACK PROVIDED.
--- NOTE | 2016-08-12 04:04 | NUR ---
RESTING WITH EYES CLOSED, RESPERATIONS EVEN, NO S/S DISTRESS NOTED.
[2016-08-12 05:11] VITALS: BP 100/53
[2016-08-12 05:50] LABS: BASOPHILS 0.5 % (0-2); EOSINOPHILS 2.1 % (0-7); HEMATOCRIT 31.7 % (42.0-54.0); HEMOGLOBIN 10.5 g/dL (13.5-17.5); IMMATURE GRANULOCYTES 0.5 % (0-5); LYMPHOCYTES 8.9 % (15-50); MCH 29.1 pg (26.0-34.0); MCHC 33.1 g/dL (31.0-37.0); MCV 87.8 fL (80.0-100.0); MEAN PLATELET VOLUME 11.1 fL (7.4-10.4); MONOCYTES 10.9 % (2-11); NEUTROPHILS 77.1 % (40-80); RBC 3.61 10x6/uL (4.20-6.10); RDW 20.5 % (11.5-14.5); WBC 12.7 10x3/uL (4.8-10.8)
[2016-08-12 05:51] LABS: PLATELET COUNT 232 10x3/uL (130-400)
[2016-08-12 06:09] LABS: ALBUMIN 2.6 g/dL (3.4-5.0); ALKALINE PHOSPHATASE 345 U/L (46-116); BILIRUBIN - TOTAL 6.73 mg/dL (0.2-1.3); CALCIUM 9.3 mg/dL (8.5-10.1); CHLORIDE - SERUM 99 mmol/L (98-107); POTASSIUM - SERUM 3.7 mmol/L (3.5-5.1); PROTEIN - SERUM 7.4 g/dL (6.4-8.2); SODIUM 133 mmol/L (136-145); UREA NITROGEN 18 mg/dL (7-18); eGFR NON AFRICAN AMERICAN 88 mL/min (90-120)
[2016-08-12 06:12] LABS: ALT (SGPT) 86 U/L (10-68); CALC OSMOLALITY 277 mosm/kg (275-300); CARBON DIOXIDE 30.1 mmol/L (21.0-32.0); GLUCOSE 281 mg/dL (74-106)
--- NOTE | 2016-08-12 07:00 | NUR ---
RECEIVED REPORT FROM DATA WAREHOUSING MANAGER NURSE, ADDISON SHELTON. PT AND IN BED, SLEEPING AT THIS TIME. CALL LIGHT IN REACH, NAD NOTED, WILL CONTINUE TO MONITOR.
--- NOTE | 2016-08-12 08:47 | NUR ---
ADMINISTERED MORNING MEDICATIONS AND 1MG OF DILAUDID FOR PAIN LEVEL OF 5/10. PT DENIES ANY OTHER NEEDS AT THIS TIME. CALL LIGHT IN REACH, PROTECTIVE SERVICES CASE WORKER AND INSTRUCTER AT BEDSIDE DOING ASSESSMENT. NAD NOTED, WILL CONTINUE TO MONITOR.
--- NOTE | 2016-08-12 09:55 | NUR ---
WENT TO [facility], INFORMED ME THAT PT WENT OUTSIDE FOR A LITTLE BIT. WILL CHECK BACK IN ABOUT 10MIN. 1022- WENT INTO PT'S ROOM AGAIN AND NOBODY IN THE ROOM AT THIS TIME. WILL CHECK BACK AROUND 1030.
[2016-08-12 10:48] VITALS: BP 122/72
[2016-08-12 12:03] VITALS: BP 123/78
--- NOTE | 2016-08-12 14:00 | NUR ---
ADMINISTERED 1MG OF DILAUDID FOR PAIN LEVEL OF 5/10. ALSO EMPTIED BILIARY DRAIN. PT DENIES ANY OTHER NEEDS AT THIS TIME. CALL LIGHT IN REACH, NAD NOTED, WILL CONTINUE TO MONITOR.
--- NOTE | 2016-08-12 15:30 | NUR ---
ADMINISTERED TORADOL 15MG IV AND OXYCODONE 30MG FOR PAIN LEVEL OF 6/10. ALSO EMPTIED BILI DRAIN. PT DENIES ANY NEEDS AT THIS TIME. CALL LIGHT IN REACH, AT BEDSIDE, NAD NOTED, WILL CONTINUE TO MONITOR.
[2016-08-12 16:51] VITALS: BP 120/70
--- NOTE | 2016-08-12 18:07 | NUR ---
ADMINISTERED 1MG OF DILAUDID FOR PAIN LEVEL OF 5/10. IVPB ZOSYN STARTING INFUSING. PT STATES THAT HE DOES NOT WANT TO BE BOTHER FOR A WHILE. WANTS TO TAKE A NAP. PT DENIES ANY OTHER NEEDS AT THIS TIME. CALL LIGHT IN REACH, AT BEDSIDE, NAD NOTED, WILL CONTINUE TO MONITOR.
[2016-08-12 20:00] VITALS: BP 117/74
--- NOTE | 2016-08-12 20:58 | NUR ---
HS MEDS GIVEN, BRICE DRAING FLUSHED WITH 10 CC NS. EMPTIED 200 CC BROWN LIQUID FROM BAG. NO OTHER NEEDS VOICED AT THIS TIME, WILL CONT TO MONITOR.
--- NOTE | 2016-08-12 21:59 | NUR ---
PT C/O NAUSEA, STATES THAT ZOFRAN GIVEN EARLIER IS NOT HELPING, ASKING IF WE CAN PAGE DR TO ASK FOR PHENERGAN. PAGE OUT TO DR FITZPATRICK.
[2016-08-13] VITALS: BP 104/51
--- NOTE | 2016-08-13 02:28 | NUR ---
DILAUDID 1 MG GIVEN FOR C/O PAIN. SNACK PROVIDED AT PT REQUEST.
--- NOTE | 2016-08-13 06:46 | NUR ---
RECEIVED REPORT FROM MARKETING DESIGNER NURSE, ADDISON VALENZUELA. PT IN BED, DENIES ANY NEEDS AT THIS TIME. CALL LIGHT IN REACH, AT BEDSIDE, NAD NOTED, WILL CONTINUE TO MONITOR.
[2016-08-13 08:56] VITALS: BP 123/73
[2016-08-13 12:05] VITALS: BP 109/62
--- NOTE | 2016-08-13 13:11 | NUR ---
ADMINISTERED TORADOL AND OXICODONE FOR PAIN LEVEL OF 6/10. ALSO ADMISTERED ZOFRAN PER PT REQUEST. NEW DRESSING APPLIED TO PORT ACCESS, USING STERILE TECHNIQUE. BLOOD DRAWN FROM PORT FOR LAB. PT DENIES ANY NEEDS AT THIS TIME. CALL LIGHT IN REACH, NAD NOTED, WILL CONTINUE TO MONITOR.
[2016-08-13 13:24] LABS: BASOPHILS 0.2 % (0-2); EOSINOPHILS 1.3 % (0-7); HEMATOCRIT 34.3 % (42.0-54.0); HEMOGLOBIN 11.4 g/dL (13.5-17.5); IMMATURE GRANULOCYTES 0.5 % (0-5); LYMPHOCYTES 4.6 % (15-50); MCH 29.3 pg (26.0-34.0); MCHC 33.2 g/dL (31.0-37.0); MCV 88.2 fL (80.0-100.0); MEAN PLATELET VOLUME 10.7 fL (7.4-10.4); MONOCYTES 9.3 % (2-11); NEUTROPHILS 84.1 % (40-80); PLATELET COUNT 231 10x3/uL (130-400); RBC 3.89 10x6/uL (4.20-6.10)
[2016-08-13 13:49] LABS: ALBUMIN 2.6 g/dL (3.4-5.0); ALKALINE PHOSPHATASE 288 U/L (46-116); ALT (SGPT) 71 U/L (10-68); CALC OSMOLALITY 273 mosm/kg (275-300); CALCIUM 9.4 mg/dL (8.5-10.1); CARBON DIOXIDE 25.2 mmol/L (21.0-32.0); CHLORIDE - SERUM 95 mmol/L (98-107); POTASSIUM - SERUM 3.6 mmol/L (3.5-5.1); PROTEIN - SERUM 7.8 g/dL (6.4-8.2); SODIUM 133 mmol/L (136-145); UREA NITROGEN 21 mg/dL (7-18); eGFR NON AFRICAN AMERICAN 88 mL/min (90-120)
[2016-08-13 13:51] LABS: GLUCOSE 191 mg/dL (74-106)
--- NOTE | 2016-08-13 15:19 | NUR ---
ADMINISTERED 1MG OF DILUADID FOR PAIN LEVEL OF 5/10. ALSO FLUSHED BILI DRAIN WITH 10CC OF NS. PT DENIES ANY OTHER NEEDS AT THIS TIME. CALL LIGHT IN REACH, NAD NOTED, WILL CONTINUE TO MONITOR.
[2016-08-13 15:52] VITALS: BP 111/70
--- NOTE | 2016-08-13 16:30 | NUR ---
PT'S BED LINEN CHANGED AND PROVIDED PT WITH SOME TOWELS AND WASH CLOTHS. PT HEADED OUTSIDE AT THIS TIME. NAD NOTED.
--- NOTE | 2016-08-13 19:00 | NUR ---
INITIAL ROUNDS MADE. PT SITTING UP IN BED WITH FAMILY AT BEDSIDE. PT RESTING WELL WITH EYES CLOSED, AWAKENED EASILY WHEN NAME CALLED. CALL LIGHT IN REACH. WILL CONT TO MONITOR.
[2016-08-13 20:23] VITALS: BP 111/61
--- NOTE | 2016-08-13 22:54 | NUR ---
RESTING WELL WITH EYES CLOSED, CONT TO MONITOR.
[2016-08-13 23:50] VITALS: BP 140/75
[2016-08-14 03:23] VITALS: BP 110/66
[2016-08-14 07:43] LABS: BASOPHILS 0.3 % (0-2); EOSINOPHILS 1.6 % (0-7); HEMATOCRIT 36.9 % (42.0-54.0); HEMOGLOBIN 12.4 g/dL (13.5-17.5); IMMATURE GRANULOCYTES 0.7 % (0-5); LYMPHOCYTES 6.4 % (15-50); MCH 29.7 pg (26.0-34.0); MCHC 33.6 g/dL (31.0-37.0); MCV 88.3 fL (80.0-100.0); MEAN PLATELET VOLUME 11.5 fL (7.4-10.4); MONOCYTES 9.4 % (2-11); NEUTROPHILS 81.6 % (40-80); PLATELET COUNT 320 10x3/uL (130-400); RBC 4.18 10x6/uL (4.20-6.10); RDW 19.7 % (11.5-14.5); WBC 22.8 10x3/uL (4.8-10.8)
--- NOTE | 2016-08-14 07:53 | NUR ---
0746-AM ROUNDING DOWN WITH PATIENT APPEARING TO BE ASLEEP IN BED WITH FEMALE MEMBER ALSO. LAYING ON RIGHT SIDE. ON EP, WILL MONITOR LAB VALUES. ON ROOM AIR.
[2016-08-14 08:06] LABS: ALBUMIN 2.9 g/dL (3.4-5.0); ANION GAP 16.7 mmol/L (8-16); BILIRUBIN - TOTAL 7.37 mg/dL (0.2-1.3); CALCIUM 9.7 mg/dL (8.5-10.1); CARBON DIOXIDE 24.9 mmol/L (21.0-32.0); POTASSIUM - SERUM 3.6 mmol/L (3.5-5.1); PROTEIN - SERUM 8.9 g/dL (6.4-8.2)
[2016-08-14 08:07] LABS: CREATININE - SERUM 1.4 mg/dL (0.6-1.3)
[2016-08-14 08:33] VITALS: BP 145/68
--- NOTE | 2016-08-14 11:34 | NUR ---
PT LEFT FLOOR.
[2016-08-14 13:49] LABS: MAGNESIUM - SERUM 2.2 mg/dL (1.8-2.4); PHOSPHOROUS 3.6 mg/dL (2.5-4.9)
--- NOTE | 2016-08-14 15:13 | NUR ---
PT LEFT FLOOR AT 1456
--- NOTE | 2016-08-14 15:38 | NUR ---
PT BACK TO THE FLOOR AND IN THE ROOM
[2016-08-14 16:00] VITALS: BP 106/67
--- NOTE | 2016-08-14 16:33 | NUR ---
DR. FITZPATRICK CALLED WITH NEW ORDERS FOR PAIN CONTROL.
[2016-08-14 20:10] VITALS: BP 110/66
--- NOTE | 2016-08-14 20:24 | NUR ---
PT LYING IN BED, EYES CLOSED, RESPIRATIONS EVEN AND UNLABORED. PTS EYES WERE NOT ENTIRELY CLOSED, DEMONSTRATED MORE ROLLED BACK THAN CLOSED. PT WAS NOT ROUSABLE TO VERBAL STIMULI, BUT RATHER GENTLE SHAKING OF HIS ARM. PT STATES HE IS IN GREAT, UNCONTROLLED PAIN, AND INQUIRED ABOUT THE TIMES HIS PAIN MEDS ARE TO BE GIVEN WELL THE PRN DILAUDID. PT DID GO OUTSIDE AT SHIFT CHANGE WITH A FAMILY MEMBER BUT RETURNED SOON AFTER. PT STATES THE MARINOL DOES NOT HELP WITH HIS APPETITE, BUT THAT HE HAS HIS BRINGING HIM "GOOD STUFF" TO HELP WITH THAT. I ASKED WHAT IT WAS, AND HE SAID MARIJUANNA, SINCE NOTHING ELSE SEEMS TO HELP. HE STATED HE WAS GOING TO SMOKE IT SO THAT HIS APPETITE WILL IMPROVE. PT DENIED ANY OTHER NEEDS, I HAVE ENCOURAGED HIM TO CALL FOR ANY ASSISTANCE AND NEEDS HE MAY HAVE. HE VERBALLY AGREED TO DO SO. WILL CONTINUE TO MONITOR CLOSELY AND ADVISE PT TO NOTIFY ME WHEN HE LEAVES THE FLOOR.
[2016-08-14 21:21] LABS: APPEARANCE CLEAR (CLEAR); BILIRUBIN NEGATIVE (NEGATIVE); COLOR DK YELLOW (YELLOW); GLUCOSE 50 mg/dL (NEGATIVE); KETONE NEGATIVE (NEGATIVE); LEUKOCYTE ESTERASE TRACE (NEGATIVE); NITRITE NEGATIVE (NEGATIVE); PROTEIN NEGATIVE (NEGATIVE); UROBILINOGEN NORMAL (NORMAL)
[2016-08-14 21:22] LABS: BACTERIA FEW /hpf (NONE SEEN); RED CELLS - URINE OCC /hpf (0-5); WHITE CELLS - URINE 0-5 /hpf (0-5)
--- NOTE | 2016-08-14 22:25 | NUR ---
PT OUTSIDE VIA WHEELCHAIR WITH .
--- NOTE | 2016-08-14 23:46 | NUR ---
PT STILL OFF THE FLOOR
--- NOTE | 2016-08-15 00:06 | NUR ---
PT HAS RETURNED VIA WHEELCHAIR, AWAKE, ALERT, ORIENTED, WITH AND FRIEND AT SIDE. I HAVE BOTH CELL NUMBERS TO CONTACT IN THE EVENT HE GOES OUT AGAIN FOR A LONG TIME. GILDA IGO: [phone] AZUCENA IGO: [phone]
--- NOTE | 2016-08-15 01:09 | NUR ---
PT LYING IN BED, EYES NOT FULLY CLOSED, EYES ROLLED BACK, ROUSABLE TO TOUCHING/SHAKING. PT IS UNABLE TO ANSWER ANY QUESTIONS AT THIS TIME OR FOLLOW SIMPLE COMMANDS. PT IS HARD TO ROUSE. V/S WNL WITH B/P 106/66 AND 96% O2 ON ROOM AIR. HAS LEFT FOR THE NIGHT. WILL CONTINUE TO MONITOR CLOSELY. BED LOW, CALL LIGHT IN REACH, SIDE RAILS X 2, HOB 20 DEGREES.
[2016-08-15 03:37] VITALS: BP 116/69
--- NOTE | 2016-08-15 04:50 | NUR ---
PT LYING IN BED ON HIS BACK, EYES HALF WAY OPENED, EYES ROLLED BACK, RESPIRATIONS EVEN AND UNLABORED, 16-18 RPM. PT IS ROUSABLE TO TOUCH, HARD TO ROUSE WITH VERBAL STIMULATION. PALPABLE RADIAL PULSES BILATERALLY. WHEN PT ROUSES, HE IMMEDIATELY FALLS BACK TO SLEEP. CONTINUE TO MONITOR CLOSELY. BED LOW, CALL LIGHT IN REACH, SIDE RAILS X 2, HOB 20 DEGREES.
[2016-08-15 06:13] LABS: BASOPHILS 0.5 % (0-2); EOSINOPHILS 3.3 % (0-7); HEMATOCRIT 34.6 % (42.0-54.0); HEMOGLOBIN 11.6 g/dL (13.5-17.5); IMMATURE GRANULOCYTES 0.5 % (0-5); MCH 29.7 pg (26.0-34.0); MCHC 33.5 g/dL (31.0-37.0); MCV 88.7 fL (80.0-100.0); MEAN PLATELET VOLUME 11.6 fL (7.4-10.4); MONOCYTES 12.2 % (2-11); NEUTROPHILS 75.5 % (40-80); PLATELET COUNT 281 10x3/uL (130-400)
[2016-08-15 06:14] LABS: WBC 14.6 10x3/uL (4.8-10.8)
[2016-08-15 06:20] LABS: ALBUMIN 2.8 g/dL (3.4-5.0); ANION GAP 11.3 mmol/L (8-16); BILIRUBIN - TOTAL 5.53 mg/dL (0.2-1.3); CALCIUM 9.8 mg/dL (8.5-10.1); CARBON DIOXIDE 29.8 mmol/L (21.0-32.0); CREATININE - SERUM 1.4 mg/dL (0.6-1.3); POTASSIUM - SERUM 3.1 mmol/L (3.5-5.1); PROTEIN - SERUM 8.3 g/dL (6.4-8.2)
--- NOTE | 2016-08-15 06:37 | NUR ---
PT AWAKE, AGITATED, ANGRY AT HIS AND CONFUSED ABOUT LAST NIGHT AND THIS AM. PT IS YELLING AT HIS ABOUT NOT BEING HERE LAST NIGHT, BUT WAS HERE WITH HIM UNTIL ALMOST MIDNIGHT WITH A FRIEND. LEFT FOR A FEW HOURS AND HAS BEEN BACK IN THE ROOM WITH PATIENT SINCE 05:00-05:30. PT STATES HE IS GOING OUT TO SMOKE. I ADVISED PT THAT I AM UNABLE TO GIVE HIM HIS PAIN MEDS IF HE IS LEAVING THE FLOOR. PT STATED HE IS GOING REGARDLESS. PT DEMONSTRATES UNSTEADINESS WHILE WALKING, SWAYING FROM SIDE TO SIDE, AND UNABLE TO STAND WITHOUT ROCKING BACK AND FORTH/SWAYING FROM SIDE TO SIDE. PT IS CLEARLY ANGRY THIS AM. PT TO LET ME KNOW WHEN HE RETURNS TO FLOOR SO I CAN GIVE HIM HIS MEDICATIONS. CONTINUE TO MONITOR.
--- NOTE | 2016-08-15 07:12 | NUR ---
RECEIVED REPORT FROM BORA TIERNEY NURSEEZIO RN. PT NOT IN ROOM AT THIS TIME, WENT OUTSIDE TO SMOKE.
--- NOTE | 2016-08-15 09:10 | NUR ---
HOUSE KEEPING AT BEDSIDE TO CLEAN ROOM. PT NOT IN ROOM AT THIS TIME, SLEEPING IN THE BED AT THIS TIME.
--- NOTE | 2016-08-15 09:25 | NUR ---
ADMINISTERED MORNIN MGEDICATIONS, AND INFORMED PT TO DRINK CONTRAST THAT WAS LEFT IN ROOM FOR CT SCAN TODAY. PT DENIES ANY NEEDS AT THIS TIME. CALL LIGHT IN REACH, NAD NOTED, WILL CONTINUE TO MONITOR.
--- NOTE | 2016-08-15 10:30 | NUR ---
PT TRANSFERED TO RADIOLOGY VIA WHEELCHAIR, NAD NOTED.
--- NOTE | 2016-08-15 11:12 | NUR ---
HOOKED PT UP TO IV, STARTED INFUSING ZOSYN IVPB AT THIS TIME. ALSO ADMINISTERED 40MEQ OF K FOR LOW K OF 3.1. PT DENIES ANY OTHER NEEDS AT THIS TIME. ASKING WHAT HE IS GETTING FOR PAIN. INFORMED HER THAT HE RECEIVED OXYCODONE AT 1100. NO OTHER NEEDS OR CONCERNS WERE VERBALIZED AT THIS TIME. CALL LIGHT IN REACH, NAD NOTED, WILL CONTINUE TO MONITOR.
--- NOTE | 2016-08-15 11:15 | NUR ---
WENT TO START INFUSING ZOSYN IVPB, PT STATED THAT HE WANTED TO GO OUTSIDE FIRST BEFORE BEING HAVING IV INFUSING STARTED. PT WILL LET ME KNOW WHEN HE GETS BACK IN THE ROOM. PT DENIES ANY NEEDS AT THIS TIME. CALL LIGHT IN REACH, NAD NOTED, WILL CONTINUE TO MONITOR.
[2016-08-15 11:39] VITALS: BP 126/81
--- NOTE | 2016-08-15 12:09 | NUR ---
PT STILL NOT IN ROOM AT THIS TIME.
--- NOTE | 2016-08-15 14:48 | NUR ---
WENT TO ADMINISTERED PT LYRICA AND KLONOPIN. PT REFUSED TO TAKE KLONOPIN HE STATED " JUST ACT LIKE YOU GAVE IT TO ME, AND LEAVE IT WITH ME AND I WILL TAKE IT LATER". INFORMED PT THAT I WOULD TAKE IT BACK AND IF HE WANTED IT LATER TO ASK FOR IT. PT SATED THAT HE WAS GOING TO GO OUTSIDE, TOLD HIM THAT I DID NOT THINK IT WAS A GOOD IDEA SINCE HE IS STILL A LITTLE DROWSY FROM THE KLONOPIN FROM THIS AM. PT STATED "I WILL BE FIND, I AM GOING ANYWAYS". ASKED ME TO TELL RUBBER BLOCK LAYER TO CHANGE LINEN, ALSO PROVIDED DRESSING CHANGE TO BILI DRAIN SITE BECUASE IT WAS LEAKING, ALSO EMPTIED BILI DRAIN.
--- NOTE | 2016-08-15 15:27 | NUR ---
PT WENT OUTSIDE, ACCOMPANIED BY , NAD NOTED.
[2016-08-15 15:38] VITALS: BP 123/85
--- NOTE | 2016-08-15 17:45 | NUR ---
WENT TO DRAW BLOOD FROM PORT, PT NOT IN ROOM.
--- NOTE | 2016-08-15 18:41 | NUR ---
PT CAME UP TO ROAD MACHINE RUNNER AND WANTED ME TO TELL DR. FITZPATRICK IF SHE COULD DECREASE PT'S KLONOPIN BECAUSE IT'S MAKING HIM ZONE OUT, AND HE IS JUST NOT ALERT ENOUGH. INFORMED PT THAT DR. FITZPATRICK DID NOT START KLONOPIN SO I WILL HAVE TO CALL DR SAENZ TO HAVE HIM CHANGE IT. CALLED JEREMIAH AND INFORMED HER THAT WANTS PT'S KLONOPIN TO BE DECREASED TO 0.5MG INSTEAD OF 1MG. JEREMIAH GARCIA STATED THAT IT WOULD BE OKAY TO CHANGE ORDER.
--- NOTE | 2016-08-15 19:30 | NUR ---
PROVIDED DRESSING CHANGE TO BILI DRAIN SITE, DRESSING WAS SOLID. WHEN I WAS DOING DRESSING CHANGE I NOTICED THAT THE TUBING WAS LOCKED SO IT WAS NOT DRAINING TO BAG, WILL LET NIGHT NURSE ADDISON KNOW ABOUT IT, SO SHE CAN KEEP AND EYE ON IT. PT IN BED, DENIES ANY NEEDS AT THIS TIME. CALL LIGHT IN REACH, NAD NTOED, WILL CONTINUE TO MONITOR.
--- NOTE | 2016-08-15 19:49 | NUR ---
ASSESSMENT COMPLETE, RESTING ON LEFT SIDE, RESPERATIONS EVEN AND UNLABORED. IV TO LEFT CHEST IFP WITH NS AT KVO. RIGHT ABD BRICE DRAIN, DRAINING TO GRAVITY. AT BED SIDE, BED LOW, CL IN REACH.
[2016-08-15 19:56] VITALS: BP 107/64
--- NOTE | 2016-08-15 21:03 | NUR ---
ASKED BY PTS TO JUST HOLD ON TO HS MEDS FOR A WHILE WHILE PT IS SLEEPING.
--- NOTE | 2016-08-15 22:46 | NUR ---
IV DISCONNECTED AT PT REQUEST SO HE CAN "GET UP AND WALK AROUND"
--- NOTE | 2016-08-15 23:27 | NUR ---
BACK TO ROOM, HS MEDS GIVEN. RIGHT ABD BILLARY DRAIN FLUSHED WITH 10 CC NS.
--- NOTE | 2016-08-15 23:32 | NUR ---
LITHOGRAPH OPERATOR AT BEDSIDE FOR VS. NEEDS ADDRESSED AT THIS TIME. CALL LIGHT IN REACH. WILL CONT TO MONITOR.
[2016-08-15 23:42] VITALS: BP 101/58
[2016-08-16] VITALS (8 sets, daily range): BP systolic 94–120; BP diastolic 60–71
--- NOTE | 2016-08-16 03:44 | NUR ---
RESTING WITH EYES CLOSED, RESPERATIONS EVEN, NO S/S DISTRESS NOTED.
[2016-08-16 06:51] LABS: EOSINOPHILS 4.5 % (0-7); HEMATOCRIT 36.3 % (42.0-54.0); HEMOGLOBIN 12.1 g/dL (13.5-17.5); IMMATURE GRANULOCYTES 0.7 % (0-5); LYMPHOCYTES 16.6 % (15-50); MCH 29.5 pg (26.0-34.0); MCHC 33.3 g/dL (31.0-37.0); MCV 88.5 fL (80.0-100.0); MEAN PLATELET VOLUME 11.7 fL (7.4-10.4); MONOCYTES 10.9 % (2-11); NEUTROPHILS 66.3 % (40-80); RDW 18.9 % (11.5-14.5); WBC 12.5 10x3/uL (4.8-10.8)
[2016-08-16 07:01] LABS: PLATELET COUNT 348 10x3/uL (130-400)
[2016-08-16 07:11] LABS: ALBUMIN 2.9 g/dL (3.4-5.0); ANION GAP 13.1 mmol/L (8-16); BILIRUBIN - TOTAL 4.84 mg/dL (0.2-1.3); CALCIUM 9.8 mg/dL (8.5-10.1); CARBON DIOXIDE 28.5 mmol/L (21.0-32.0); CREATININE - SERUM 1.4 mg/dL (0.6-1.3); POTASSIUM - SERUM 3.6 mmol/L (3.5-5.1); PROTEIN - SERUM 8.7 g/dL (6.4-8.2)
[2016-08-16 07:14] LABS: APTT 38.6 SECONDS (22.8-39.4); INR 1.3 (0.85-1.17); PROTIME 16.1 SECONDS (11.6-15.0)
--- NOTE | 2016-08-16 11:13 | NUR ---
CLEANSED R.SIDE BILI DRAIN WITH ASEPTIC FOAM CLEANSER AND APPLIED NEW PABLO GUAZE DRSG AND SECURED WITH TEAGADERM. FLUSHED DRAIN WITH 10 CC OF NS FLUSH AND DRAINED BILI BAG OF 50ML GREEN LIQUID. PT GOING OUTSIDE WITH SPOUSE TO SMOKE. DENIES ANY FURTHER NEEDS AT THIS TIME. WILL CPOC.
--- NOTE | 2016-08-16 11:33 | NUR ---
CONSENTS SIGNED FOR CT LIVER BIOPSY. SPECIALS TEAM HERE NOW TO TAKE HIM FOR PROCEDURE. NO FURTHER NEEDS AT THIS TIME. WILL CPOC.
--- NOTE | 2016-08-16 13:30 | NUR ---
PT REFUSED TO ABIDE BY BEDREST ORDERS AND IS LEAVING FLOOR TO GO OUTSIDE. WILL CTM.
--- NOTE | 2016-08-16 14:07 | NUR ---
Nutrition follow-up: Diet: Regular PO intake 25-50% of meals; 75-100% of snacks Wt: 146# +BM->colostomy Pt out to smoke most of the time. Will continue to provide food choices and honor food preferences. RDN following.
[2016-08-16] MEDS ORDERED: DILAUDID2 MG PO (15:44)
--- NOTE | 2016-08-16 16:14 | NUR ---
DEACCESSED PTS L.CHEST INFUSA PORT. PT REFUSED TO HAVE IT HEPARINIZED AND STATES "[facility] PLACED IT AND TOLD ME NOT TO USE HEPARIN WITH IT" SINCE PT REFUSED I ONLY WAS ABLE TO FLUSH WITH 10 CC OF NS. PT BEING DISCHARGED WITH BILIDRAIN IN PLACE BUT CAPPED OFF DRAINING INTERNALLY. VERY DETAILED INSTRUCTIONS GIVEN ON HOW TO FLUSH STERILLY AND THE NEED TO DO IT TWICE A DAY. PT VERBALIZED UNDERSTANDING AND I SHOWED HIM HOW WITH AT BEDSIDE. AWAITING DISCHARGE PAPERS. WILL CTM.
[2016-08-16] MEDS ORDERED: FLAGYL500 MG PO (16:16)
[2016-08-16] MEDS ORDERED: LEVAQUIN500 MG PO (16:17)
--- NOTE | 2016-08-16 16:17 | NUR ---
10CC SALINE FLUSHES #30 WITH 3 REFILLS CALLED TO [facility]. SPOKE WITH DEBRA/PHARMACIST
--- NOTE | 2016-08-16 16:45 | NUR ---
WENT TO DO DISCHARGE TEACHING AND PATIENT IS NOT IN HIS ROOM. HE MOST LIKELY WENT OUTSIDE AGAIN. WILL PROVIDE PAPERS WHEN HE RETURNS.
--- NOTE | 2016-08-16 17:36 | NUR ---
DISCHARGE TEACHING PROVIDED PAPERS SIGNED. PT READY TO BE DISCHARGED AND BELONGINGS COLLECTED. PT DENIES ANY QUESTIONS OR CONCERNS. NO FURTHER NEEDS.
--- NOTE | 2016-08-17 10:08 | DS ---
PATIENT:ESTRELLA JIMÉNEZ :77 MEDICAL RECORD: [id number] DISCHARGE SUMMARY ADMISSION DATE: 08/07/16 DISCHARGE DATE: 08/16/16 DATE OF ADMISSION: 08/07/2016 DATE OF DISCHARGE: 08/16/2016 ADMITTING DIAGNOSES: Anal cancer, jaundice, liver metastasis, chronic pain due to neoplasm, depression, anemia and neoplastic disease. This is a gentleman of Dr. De La O, admitted from Dr. Vázquez's office for a diagnosis as outlined above. Details are well-outlined in the history of the present illness, H&P. All events, lab procedures, diagnostic testing are well documented in the records. CONSULTANTS: 1. Dr. Vázquez, hematology/oncology. 2. Dr. Read. 3. Dr. Aguilar, interventional radiology. 4. Dr. Chelsea Shetty, gastroenterology. HOSPITAL COURSE: The patient was started on IV antibiotics, taken to the specialist where a biliary drain was done. This was followed by common bile duct brushing and biopsy. Path from the common bile duct brushing is negative for malignancy. Interventional radiology planned on repeating CT scan and biopsy. Before this was done, of note, Dr. Vázquez is managing pain management. He was on nicotine patch for nicotine dependence with withdrawal and Marinol for anorexia. Labs and volume closely followed. Bilirubin started trending down. Clonazepam was added for some anxiety. He had some right flank pain that developed. Renal ultrasound was negative. Please refer to report. UA was bland. Creatinine had peaked up to a 1.3, so Toradol was stopped. Repeat CT scan showed lesion within the medial segment of the left lobe of the liver. In the region of the common bile duct obstruction, it showed the internal/external biliary drainage catheter as well as prominent gastric distention, as well as dilatation of the proximal mid duodenum without evidence of definite obstruction. Please refer to report. He was taken back to specialist today where CT-guided liver biopsy was done. His drain was internalized. He is stable by all disciplines for dismissal home. He will follow up with house calls. Follow up with Dr. Aguilar in interventional radiology. Follow up with Dr. Vázquez. Dr. Vázquez is overseeing his pain management. His diagnoses are the same as above, also includes nicotine dependence with withdrawal, anemia and neoplastic disease, anxiety and obstructive jaundice, status post biliary stenting. Greater than 30 minutes was spent on this discharge. Please refer to med rec. TRANSINT:[id number] Voice Confirmation ID: [id number] DOCUMENT ID: [id number] Dictated By: JEREMIAH GARCIA RN I have interviewed/examined the above patient and agree with these documented findings. DISCHARGE SUMMARY REPORT [id number] ESTRELLA JIMÉNEZ BARTON MD at 1008 CC: [id number] DICTATION DATE: 08/16/16 151 BODYBUILDER: 08/17/16 0250 DIS IN 08/16/16 [place] [id number] [place] [id number]
== END 2016-08-16 17:45 | disposition home or self-care (01) | DRG 374 ==
LOC: D.M2 12:59
PROVIDERS: Family Medicine Adult Medicine; General Practice; Radiology Diagnostic Radiology; ADMIT Family Medicine
PROC: 0F9930Z Drainage of Common Bile Duct with Drainage Device, Percutaneous Approach (ICD-10-PCS; principal; 2016-08-09 10:00)
PROC: BF101ZZ Fluoroscopy of Bile Ducts using Low Osmolar Contrast (ICD-10-PCS; 2016-08-11)
PROC: 0FB Hepatobiliary System and Pancreas, Excision (ICD-10-PCS; 2016-08-11)
PROC: 0FB23ZX Excision of Left Lobe Liver, Percutaneous Approach, Diagnostic (ICD-10-PCS; 2016-08-16)
DX: C21.0 Malignant neoplasm of anus, unspecified (principal); K83.1 Obstruction of bile duct; C78.7 Secondary malignant neoplasm of liver and intrahepatic bile duct; F17.203 Nicotine dependence unspecified, with withdrawal; L29.9 Pruritus, unspecified; E11.40 Type 2 diabetes mellitus with diabetic neuropathy, unspecified; G89.3 Neoplasm related pain (acute) (chronic); F32.9 Major depressive disorder, single episode, unspecified; D63.0 Anemia in neoplastic disease

== ENCOUNTER 2016-09-14 11:26 | Outpatient (CLI) | payer MEDICAID ==
[~2016-09-14] VITALS: Ht 180.3 cm; Wt 62.3 kg
--- NOTE | ~2016-09-14 | HEMODYNAMI ---
PATIENT:ESTRELLA JIMÉNEZ MEDICAL RECORD: [id number] : 77 LOCATION:[facility] ADMISSION DATE: 09/14/16 Generatedon:09/14/201615:22 Patient name: ESTRELLA JIMÉNEZ Patient #: [id number] SSN: : 1975 Date of study: 09/14/2016 Page: Of Hemodynamic Procedure Report Patient Data Patient Demographics First Name: ESTRELLA Gender: Male Last Name: TINO : 1975 Middle Initial: YOBANI Age: 41 year(s) Patient #: [id number] Race: Unknown Additional ID: [id number] Contact details Address: [address] [facility] State: [place] City: [place] Zip code: [address] Admission Admission Data Admission Date: 09/14/2016 Admission Time: 11:26 Procedure Procedure Types Cath Procedure Peripheral Cath Diagnostic Procedure Biliary Procedure Description Procedure Date Procedure Date: 09/14/2016 Procedure Start Time: 14:40 Procedure Staff Name Function Franco Aguilar MD Performing Physician Rafaela Pal RN Nurse Kumar Souza RT Monitor Luciana Xavier RT Scrub Procedure Data Cath Procedure Fluoroscopy Diagnostic fluoroscopy Total fluoroscopy Time: 7.9 time: 7.9 min min Diagnostic fluoroscopy Total fluoroscopy dose: 129 dose: 129 mGy mGy Contrast Material Contrast Material Type Amount (ml) Isovue 300 38 Diagnostic catheters Device Type Used For End Catheter Placement Merit ULTRA BOLUS FLUSH 5Fr 65CM catheter Hemodynamics Rest Heart Rate: 60 (bpm) Snapshots Pre Cath Intra NCS Post Cath Vital Signs Time Heart Resp SPO2 NIBP (mmHg) Rhythm Pain Sedation Rate (ipm) (%) Status Level (bpm) 13:57:08 56 99 116/65(85) NSR 0 (11) 10(A) , No pain 14:01:18 54 96 117/60(88) NSR 0 (11) 10(A) , No pain 14:05:24 55 96 116/71(85) NSR 0 (11) 10(A) , No pain 14:09:29 55 96 120/70(89) NSR 0 (11) 10(A) , No pain 14:13:31 57 96 128/82(107) NSR 0 (11) 10(A) , No pain 14:17:43 69 0 96 140/78(109) NSR 0 (11) 10(A) , No pain 14:21:53 57 6 99 140/85(124) NSR 0 (11) 10(A) , No pain 14:26:11 65 99 142/83(102) NSR 0 (11) 10(A) , No pain 14:30:25 62 99 120/76(95) NSR 0 (11) 10(A) , No pain 14:34:33 61 2 98 127/68(96) NSR 0 (11) 10(A) , No pain 14:38:43 60 97 115/70(89) NSR 0 (11) 10(A) , No pain 14:42:51 59 97 109/65(85) NSR 0 (11) 10(A) , No pain 14:46:56 61 96 115/64(87) NSR 0 (11) 10(A) , No pain 14:51:08 59 20 98 101/50(84) NSR 0 (11) 10(A) , No pain 14:55:02 71 3 96 118/85(111) NSR 0 (11) 10(A) , No pain 15:00:01 70 94 134/85(108) NSR 0 (11) 10(A) , No pain 15:04:13 63 95 122/73(92) NSR 0 (11) 10(A) , No pain 15:08:21 66 96 126/69(88) NSR 0 (11) 10(A) , No pain 15:12:29 60 21 95 123/69(99) NSR 0 (11) 10(A) , No pain 15:16:38 56 14 96 130/66(97) NSR 0 (11) 10(A) , No pain 15:20:44 61 15 99 144/86(121) NSR 0 (11) 10(A) , No pain Procedure Log Time Note 13:26:56 Luciana Xavier RT(R) sent for patient. Start room use. 13:27:09 Time tracking: Regular hours 13:27:14 Plan of Care:Hemodynamics will remain stable., Cardiac rhythm will remain stable., Comfort level will be maintained., Respiratory function will remain adequate., Patient/ family verbilizes understanding of procedure., Procedure tolerated without complication., Recovers from procedure without complications.. 13:27:19 Patient received from Outpatients to IR Alert and oriented. Tansferred to table in Prone position. 13:: - 13:32:14 SEE ANESTHESIA FOR PRE PROCEDURE TIVA 13:32:19 Use device set IR Diagnostic 13:32:20 Bag Decanter opened to sterile field. 13:32:21 Sterile Angiographic Pack opened to sterile field. 13:55:58 Vital chart was started 13:56:00 Baseline sample Acquired. 13:56:01 Full Disclosure recording started 14:20:12 KAMRAN WITH ANESTHESIA IN ROOM 14:25:37 Left Brachial area was prepped with betadine and draped in sterile fashion 14:25:42 Right abdomen area was prepped with chlora-prep and draped in sterile fashion 14:25:47 Alarms reviewed by R. N. 14:25:48 Sharps counted by scrub and verified by R.N. 14:35:11 St Faisal 10FR 23CM sheath opened to sterile field. 14:38:37 Physician arrived 14:38:37 --------ALL STOP TIME OUT------ 14:38:38 Final Timeout: patient, procedure, and site verified with staff and physician. All members of the team are in agreement. 14:38:41 Right abdomen site verified by team. 14:38:48 Physical assessment completed. ASA score P 3 - A patient with severe systemic disease as per Franco Aguilar MD. 14:39:02 Sedation plan: TIVA Propofol 14:39:26 Terumo Angled SS 180cm glide wire opened to sterile field. 14:40:30 Local anesthetic to Abdominal area with Lidocaine 1% by Franco Aguilar MD.INITIAL ACCESS ONLY 14:44:58 Terumo 5FR ANGLED 65CM glide catheter opened to sterile field. 14:46:05 Noel Sci AMPLATZ Super stiff 180cm guide wire opened to sterile field . 14:48:51 VIABIL 10 X 6 stent was deployed across Undefined1 . 14:53:09 BasixTOUCH Inflation Syringe opened to sterile field. 14:53:43 Inflation number: 1 A Cordis Powerflex Pro 8.0 X 60 X 135 balloon was prepped and advanced across the Undefined1, then inflated to 0 USHA for 0:00 (min:sec). 14:56:26 Inflation number: 2 A Cordis Powerflex Pro 10.0 x 40 x 80cm balloon was prepped and advanced across the Undefined1, then inflated to 0 USHA for 0:07 (min:sec). 15:01:10 Cook BENTSON 145cm guide wire opened to sterile field. 15:01:13 A [employer]esso Solutions ULTRA BOLUS FLUSH 5Fr 65CM catheter was advanced over the wire and used for . 15:05:14 Abscession 10 FR drainage catheter opened to sterile field. 15:09:00 SUTURE ETHILON 2-0 BLK MONO FS opened to sterile field. 15:09:11 Procedure ended.(Physican Out) 15:18:34 Fluoroscopy time 07.90 minutes. 15:18:40 Fluoroscopy dose: 129 mGy 15:18:40 Flurop Dose total: 129 15:18:54 Contrast amount:Isovue 300 38ml. 15:18:57 Sharps counted by scrub and verified by R.N. 15:19:19 SUTURED IN WITH 2.0 ETHILON 15:19:26 Post-procedure physical assessment completed. ASA score P 3 - A patient with severe systemic disease as per Franco Aguilar MD. 15:19:27 Post procedure instruction explained to patient.Patient verbalizes understanding. 15:19:29 Procedure and supply charges have been captured, reviewed, submitted an d are correct. 15:21:02 Report given to Recovery Room. 15:21:05 Patient transfered to Outpatients with Bed. 15:22:19 Vital chart was stopped Intervention Summary Intervention Notes Time ActionType Lesion and Equipment Action# Pressure Duration Attributes Used 14:48:51 Deploy self Undefined1 VIABIL 10 1 expanding X 6 stent stent 14:53:43 Inflate Undefined1 Cordis 1 0 00:00 balloon Powerflex Pro 8.0 X 60 X 135 balloon 14:56:26 Inflate Undefined1 Cordis 2 0 00:07 balloon Powerflex Pro 10.0 x 40 x 80cm balloon Device Usage Item Name Manufacture Quantity Catalog Number Hospital Part Current Min imal Lot# / Charge Number Stock Stock Serial# Code Bag Decanter Microtek 1 [id number] 5 Medical Inc. Sterile Cardinal 1 [id number] [id number] [address] Faisal [address] [facility] Faisal 1 [id number] 615422 035879 5 23CM sheath Terumo Terumo 1 [id number] 123762 856598 5 Angled SS 180cm glide wire Terumo 5FR Terumo 1 [id number] 172344 923919 5 ANGLED 65CM glide catheter Noel Sci Noel 1 [id number] 117158 755561 5 [id number] AMPLATZ Scientific Super stiff 180cm guide wire VIABIL 10 X [employer] [place] 1 [id number] 567783 720039 5 [id number] 6 stent Basix[facility]a [facility] 1 [id number] 746800 777207 5 Inflation Syringe Cordis Cardinal 1 [id number] 264892 814995 5 Powerflex Health Pro 8.0 X 60 X 135 balloon Cordis Cardinal 1 [id number] 106984 250050 5 Powerflex Health Pro 10.0 x 40 x 80cm balloon Cook [facility] 1 [id number] 087258 749725 5 [id number] 145cm guide wire [facility] 1 [id number] 318216 983508 5 BOLUS FLUSH 5Fr 65CM catheter Abscession Angiodynamics 1 [id number] 205606 695693 242935 5 10 FR drainage catheter SUTURE Ethicon 1 [id number] 077605 091452 5 ETHILON 2-0 BLK MONO FS Signature Audit [place] Stage Time Signature Unsigned Intra-Procedure 09/14/2016 Kumar 3:22:17 PM [place] RT (R) (CV) Signatures Monitor : Kumar Signature : [place] RT Date : Time : [facility] [address] [place] [address]
[~2016-09-14 11:26] MED LIST: ATIVAN1 MG PO; CIALIS5 MG PO; DILAUDID2 MG PO; DURAGESIC1 PATCH .1 TRANSDERM; DURAGESIC1 PATCH .3 TRANSDERM; FLAGYL500 MG PO; LEVAQUIN500 MG PO; LYRICA100 MG PO; MARINOL5 MG PO; PHENERGAN25 M1 PO; PROTONIX20 MG PO; ROXICODONE15 MG PO; TOPAMAX25 MG PO; ZOFRAN ODT4 MG/UDTAB PO; ZOFRAN8 MG PO
[2016-09-14 12:12] VITALS: BP 102/63; Ht 180.3 cm; Wt 62.3 kg
[2016-09-14 12:25] LABS: BASOPHILS 0.2 % (0-2); EOSINOPHILS 2.9 % (0-7); HEMATOCRIT 33.3 % (42.0-54.0); IMMATURE GRANULOCYTES 0.2 % (0-5); LYMPHOCYTES 11.9 % (15-50); MCH 29.5 pg (26.0-34.0); MCV 89.3 fL (80.0-100.0); MEAN PLATELET VOLUME 11.4 fL (7.4-10.4); NEUTROPHILS 78.8 % (40-80); RBC 3.73 10x6/uL (4.20-6.10); RDW 17.1 % (11.5-14.5); WBC 9.5 10x3/uL (4.8-10.8)
[2016-09-14 12:35] LABS: PLATELET COUNT 171 10x3/uL (130-400)
[2016-09-14 12:46] LABS: INR 1.14 (0.85-1.17); PROTIME 14.4 SECONDS (11.6-15.0)
[2016-09-14 12:47] LABS: APTT 103.6 SECONDS (22.8-39.4)
[2016-09-14 12:55] LABS: ALBUMIN 2.6 g/dL (3.4-5.0); ALKALINE PHOSPHATASE 360 U/L (46-116); ALT (SGPT) 65 U/L (10-68); BILIRUBIN - DIRECT 1.79 mg/dL (0.00-0.30); CALC OSMOLALITY 274 mosm/kg (275-300); CALCIUM 8.7 mg/dL (8.5-10.1); CHLORIDE - SERUM 102 mmol/L (98-107); CREATININE - SERUM 0.8 mg/dL (0.6-1.3); SODIUM 138 mmol/L (136-145); UREA NITROGEN 11 mg/dL (7-18); eGFR NON AFRICAN AMERICAN > 90 mL/min (90-120)
[2016-09-14 13:05] LABS: GLUCOSE 103 mg/dL (74-106)
--- NOTE | 2016-09-14 17:45 | NUR ---
1715 PORT NEEDLE REMOVED AND FLUSHED WITH SALINE AND HEPRIN
--- NOTE | 2016-09-14 17:54 | NUR ---
VS WAS TAKEN AND PLACED ON POSTOP SHEET AND PLACED IN CHART
== END 2016-09-14 17:35 | disposition home or self-care (01) ==
LOC: D.OPS 11:26 → D.RAD 14:00 → D.OPS 17:35
PROVIDERS: General Practice
DX: K83.1 Obstruction of bile duct (principal)

== ENCOUNTER 2016-09-18 10:08 | Outpatient (CLI) | payer MEDICAID ==
[~2016-09-18] VITALS: Ht 180.3 cm; Wt 61.4 kg
--- NOTE | ~2016-09-18 | HEMODYNAMI ---
PATIENT:ESTRELLA JIMÉNEZ MEDICAL RECORD: [id number] : 77 LOCATION:D.[facility] ADMISSION DATE: 09/18/16 Generatedon:09/18/201614:02 Patient name: ESTRELLA JIMÉNEZ Patient #: [id number] SSN: : 1975 Date of study: 09/18/2016 Page: Of Hemodynamic Procedure Report Patient Data Patient Demographics Procedure consent was obtained First Name: ESTRELLA Gender: Male Last Name: TINO : 1975 Middle Initial: YOBANI Age: 41 year(s) Patient #: [id number] Race: Unknown Additional ID: [id number] Contact details [address]: [address] [place] [facility] Zip code: [address] Admission Admission Data Admission Date: 09/18/2016 Admission Time: 10:08 Procedure Procedure Types Cath Procedure Peripheral Cath Diagnostic Procedure Miscellaneous Procedure Description Procedure Date Procedure Date: 09/18/2016 Procedure Start Time: 13:52 Procedure Staff Name Function Franco Aguilar MD Performing Physician Kumar Souza RT Scrub Rafaela Pal RN Nurse Ayaka Daniel RT Monitor Hemodynamics Rest Pre Cath Intra NCS Post Cath Procedure Log Time Note 13:16:24 Kumar Souza RT (R) (CV) sent for patient. Start room use. 13:16:32 Time tracking: Regular hours 13:16:37 Plan of Care:Hemodynamics will remain stable., Cardiac rhythm will remain stable., Comfort level will be maintained., Respiratory function will remain adequate., Patient/ family verbilizes understanding of procedure., Procedure tolerated without complication., Recovers from procedure without complications.. 13:16:42 Patient received from Outpatients to IR Alert and oriented. Tansferred to table in Supine position. 13:16:44 Signed procedure consent form obtained from patient. 13:16:46 ECG and BP/O2 sat monitors applied to patient. 13:16:48 Full Disclosure recording started 13:16:58 - 13:17:05 H&P Date Dictated: 09/18/2016 H&P Addendum completed by physician on day of procedure. (MUST COMPLETE FOR ALL OUTPATIENTS). 13:17:06 Pre-procedure instructions explained to patient. 13:17:07 Pre-procedure instructions explained to patient. 13:17:07 Pre-op teaching completed and patient verbalized understanding. 13:17:09 Family in waiting room. 13:17:11 Patient NPO since Midnight. 13:17:14 Is the patient allergic to Iodine/contrast media? No. 13:19:17 - 13:19:20 Is patient on blood thinner?No 13:19:21 Patient diabetic? No. 13:19:22 - 13:19:23 ----Pre-sedation anethsthesia assessment.---- 13:19:25 Previous problem with sedation/anesthesia? No ? 13:19:27 Snore? No 13:19:28 Sleep apnea? No 13:19:30 Deviated septum? No 13:19:31 Opens mouth fully? Yes 13:19:32 Sticks out tongue? Yes 13:19:34 Airway obstruction? No ? 13:19:37 - 13:19:38 Dentures? No ? 13:19:46 Patient pain scale 0/10 no pain. 13:19:53 IV patent on arrival in port with 0.9% NaCl at KVO. 13:19:56 Sharps counted by scrub and verified by RMikaelNMikael 13:19:56 Alarms reviewed by Dasha Beckford 13:20:01 Right abdomen area was prepped with chlora-prep and draped in sterile fashion 13:20:07 Use device set IR Diagnostic 13:20:09 Bag Decanter opened to sterile field. 13:20:10 Sterile Angiographic Pack opened to sterile field. 13:48:34 Physician arrived 13:51:51 --------ALL STOP TIME OUT------ 13:51:53 Final Timeout: patient, procedure, and site verified with staff and physician. All members of the team are in agreement. 13:52:04 Physical assessment completed. ASA score P 3 - A patient with severe systemic disease as per Franco Aguilar MD. 13:52:19 Sedation plan: Local Anesthetic Lidocaine 13:52:24 Procedure started. 14:00:53 contrast injected through catheter. catheter remains in for several mor e days 14:02:03 Procedure ended.(Physican Out) 14:02:13 Procedure and supply charges have been captured, reviewed, submitted an d are correct. Device Usage Item Name Manufacture Quantity Catalog Hospital Part Current Minimal Lot# / Number Charge Number Stock Stock Serial# Code Bag Decanter Microtek 1 [id number] 5 [employer] Sterile Cardinal 1 [id number] [id number] 5 Angiographic Health Pack Signature Audit [place] Stage Time Signature Unsigned Intra-Procedure 09/18/2016 Ayaka Daniel 2:02:51 PM RT(R) Signatures Monitor : Ayaka Daniel RT Signature : Date : Time : [facility] [address] [place] [id number]
[2016-09-18 10:44] VITALS: BP 105/63; Ht 180.3 cm; Wt 61.4 kg
--- NOTE | 2016-09-18 10:49 | NUR ---
VENOUS ACCESS PORT ACCESSED BY HARDIK TIPTON RN WITH 20G X 1 INCH WANG NEEDLE, BLOOD DRAWN VIA PORT FOR LAB WORK AFTER 10ML WASTE.
[2016-09-18 12:28] LABS: BASOPHILS 0.7 % (0-2); EOSINOPHILS 2.9 % (0-7); HEMATOCRIT 35.9 % (42.0-54.0); IMMATURE GRANULOCYTES 0.4 % (0-5); LYMPHOCYTES 18.8 % (15-50); MCH 29.7 pg (26.0-34.0); MCHC 33.4 g/dL (31.0-37.0); MCV 88.9 fL (80.0-100.0); MEAN PLATELET VOLUME 11.4 fL (7.4-10.4); MONOCYTES 0.4 % (2-11); NEUTROPHILS 76.8 % (40-80); PLATELET COUNT 185 10x3/uL (130-400); RBC 4.04 10x6/uL (4.20-6.10); RDW 16.3 % (11.5-14.5); WBC 5.5 10x3/uL (4.8-10.8)
[2016-09-18 13:16] LABS: ALKALINE PHOSPHATASE 276 U/L (46-116); ALT (SGPT) 50 U/L (10-68); BILIRUBIN - TOTAL 1.65 mg/dL (0.2-1.3); CALC OSMOLALITY 272 mosm/kg (275-300); CALCIUM 8.7 mg/dL (8.5-10.1); CARBON DIOXIDE 27.7 mmol/L (21.0-32.0); CHLORIDE - SERUM 99 mmol/L (98-107); CREATININE - SERUM 0.9 mg/dL (0.6-1.3); GLUCOSE 140 mg/dL (74-106); POTASSIUM - SERUM 3.3 mmol/L (3.5-5.1); PROTEIN - SERUM 7.3 g/dL (6.4-8.2); SODIUM 136 mmol/L (136-145); UREA NITROGEN 11 mg/dL (7-18); eGFR NON AFRICAN AMERICAN > 90 mL/min (90-120)
--- NOTE | 2016-09-18 14:51 | NUR ---
1415 PROCEDURE WAS CANCELLED, PORT FLUSHED WITH 10CC NS AND 5CC HEPARIN. PT DRESSED. RELEASED AMB WITH FAMILY.
== END 2016-09-18 14:35 | disposition home or self-care (01) ==
LOC: D.OPS 10:08 → D.RAD 12:00 → D.OPS 12:00
PROVIDERS: General Practice
DX: K83.1 Obstruction of bile duct (principal); Z01.812 Encounter for preprocedural laboratory examination; Z53.9 Procedure and treatment not carried out, unspecified reason

== ENCOUNTER 2016-09-21 08:46 | Outpatient (CLI) | payer MEDICAID ==
[~2016-09-21] VITALS: Ht 180.3 cm; Wt 62.3 kg
--- NOTE | ~2016-09-21 | HEMODYNAMI ---
PATIENT:ESTRELLA JIMÉNEZ MEDICAL RECORD: [id number] : 77 LOCATION:[facility] ADMISSION DATE: 09/21/16 Generatedon:09/21/201612:48 Patient name: ESTRELLA JIMÉNEZ Patient #: [id number] SSN: : 1975 Date of study: 09/21/2016 Page: Of Hemodynamic Procedure Report Patient Data Patient Demographics Procedure consent was obtained First Name: ESTRELLA Gender: Male Last Name: TINO : 1975 Middle Initial: YOBANI Age: 41 year(s) Patient #: [id number] Race: Unknown Additional ID: [id number] Contact details Address: [address] [facility] State: [place] Zip code: [address] Past Medical History Allergies: No known allergies Admission Admission Data Admission Date: 09/21/2016 Admission Time: 8:46 Height (in.): 71 BSA: 1.8 (m2) Height (cm.): 180.34 BMI: 19.11 (kg/m2) Weight (lbs.): 137 Weight (kg.): 62.14 Procedure Procedure Types Cath Procedure Peripheral Cath Diagnostic Procedure Cath Peripheral Biliary Cholangio Thru Existing Procedure Description Procedure Date Procedure Date: 09/21/2016 Procedure Start Time: 12:38 Procedure Staff Name Function Franco Aguilar MD Performing Physician Kumar Souza RT Scrub Rafaela Pal RN Nurse Ayaka Daniel RT Vessel Liner Ayaka Daniel RT Monitor Procedure Data Cath Procedure Fluoroscopy Diagnostic fluoroscopy Total fluoroscopy Time: 0.9 time: 0.9 min min Diagnostic fluoroscopy Total fluoroscopy dose: 41 dose: 41 mGy mGy Contrast Material Contrast Material Type Amount (ml) Isovue 300 15 Procedure Medications Medication Administration Route Dosage Fentanyl I.V. 100 mcg Fentanyl I.V. 50 mcg Hemodynamics Rest BSA: 1.8 (m2) O2 Consumption: Estimated: 210.02 (ml/min) O2 Consumption indexed: Estimated:116.68 (ml/min/m) Heart Rate: 55 (bpm) Snapshots Pre Cath Intra NCS Post Cath Vital Signs Time Heart Resp SPO2 NIBP (mmHg) Rhythm Pain Sedation Rate (ipm) (%) Status Level (bpm) 11:48:17 59 13 100 113/64(101) NSR 0 (11) 10(A) , No pain 11:52:23 54 16 100 114/66(84) NSR 0 (11) 10(A) , No pain 11:56:31 54 18 99 103/57(70) NSR 0 (11) 10(A) , No pain 12:00:35 54 18 99 107/58(70) NSR 0 (11) 10(A) , No pain 12:04:41 52 18 98 106/59(79) NSR 0 (11) 10(A) , No pain 12:08:45 59 16 98 104/57(75) NSR 0 (11) 10(A) , No pain 12:12:46 56 15 100 114/63(84) NSR 0 (11) 10(A) , No pain 12:16:52 56 13 100 105/60(77) NSR 0 (11) 10(A) , No pain 12:20:52 68 15 100 120/70(89) NSR 0 (11) 10(A) , No pain 12:25:02 54 15 99 106/57(77) NSR 0 (11) 10(A) , No pain 12:29:07 59 17 100 102/60(76) NSR 0 (11) 10(A) , No pain 12:33:09 63 15 100 112/61(83) NSR 0 (11) 10(A) , No pain 12:37:13 52 14 100 112/66(88) NSR 0 (11) 10(A) , No pain 12:41:16 58 10 99 117/66(100) NSR 0 (11) 10(A) , No pain 12:45:20 54 17 100 117/71(86) NSR 0 (11) 10(A) , No pain Medications Time Medication Route Dose Verified Delivered Reason Notes Effectivenes s by by 12:15:39 Fentanyl I.V. 100 Rafaela Rafaela for mcg Kae Kae pain RN RN 12:35:58 Fentanyl I.V. 50 Rafaela Rafaela for mcg Kae Kae pain RN clinical documentation clerk Log Time Note 10:55:43 Patient Weight : 137 kg 10:55:58 Patient Height : 71 cm 11:46:31 Time tracking: Regular hours 11:46:39 Plan of Care:Hemodynamics will remain stable., Cardiac rhythm will remain stable., Comfort level will be maintained., Respiratory function will remain adequate., Patient/ family verbilizes understanding of procedure., Procedure tolerated without complication., Recovers from procedure without complications.. 11:46:51 Patient received from Outpatients to IR Alert and oriented. Tansferred to table in Supine position. 11:46:54 Correct patient and procedure confirmed by team. 11:46:56 Signed procedure consent form obtained from patient. 11:46:58 ECG and BP/O2 sat monitors applied to patient. 11:46:59 Vital chart was started 11:47:01 Baseline sample Acquired. 11:47:02 Full Disclosure recording started 11:47:03 - 11:47:13 H&P Date Dictated: 09/21/2016 Within 30 days and on chart.. 11:47:15 Pre-procedure instructions explained to patient. 11:47:17 Pre-op teaching completed and patient verbalized understanding. 11:47:20 Family in waiting room. 11:47:24 Patient NPO since Midnight. 11:47:34 Patient allergic to No known allergies 11:47:39 Is the patient allergic to Iodine/contrast media? No. 11:47:43 Is patient on blood thinner?No 11:47:47 Patient diabetic? No. 11:47:49 - 11:47:50 ----Pre-sedation anethsthesia assessment.---- 11:47:55 Previous problem with sedation/anesthesia? No ? 11:47:58 Snore? No 11:48:01 Sleep apnea? No 11:48:03 Deviated septum? No 11:48:06 Opens mouth fully? Yes 11:48:08 Sticks out tongue? Yes 11:48:12 Airway obstruction? No ? 11:48:16 Dentures? No ? 11:48:19 - 11:48:26 IV patent on arrival in port with 0.9% NaCl at [facility]. 11:48:41 Right abdomen area was prepped with chlora-prep and draped in sterile fashion 11:48:43 - 12:15:39 Fentanyl 100 mcg I.V. was administered by Rafaela Pal RN; for pain ; 12:20:50 Physician arrived 12:21:12 Final Timeout: patient, procedure, and site verified with staff and physician. All members of the team are in agreement. 12:22:36 Procedure started. 12:35:58 Fentanyl 50 mcg I.V. was administered by Rafaela Pal RN; for pain; 12:37:45 Terumo ANGLE 180L glide wire opened to sterile field. 12:38:00 Use device set IR Diagnostic 12:38:02 Sterile Angiographic Pack opened to sterile field. 12:38:03 Bag Decanter opened to sterile field. 12:39:04 Procedure ended.(Physican Out) 12:39:21 Fluoroscopy time 00.90 minutes. 12:39:26 Fluoroscopy dose: 41 mGy 12:39:26 Flurop Dose total: 41 12:39:34 Contrast amount:Isovue 300 15ml. 12:39:37 Sharps counted by scrub and verified by R.N. 12:42:31 Procedure and supply charges have been captured, reviewed, submitted an d are correct. 12:48:40 Vital chart was stopped Device Usage Item Name Manufacture Quantity Catalog Hospital Part Current Minimal Lot# / Number Charge Number Stock Stock Serial# Code Cameron Ottoo 1 [id number] 5 180L glide wire Sterile Cardinal 1 [id number] [id number] 5 Angiographic Health Pack Bag Decanter Microtek 1 [id number] [id number] [id number] 5 [employer] Signature Audit [place] Stage Time Signature Unsigned Intra-Procedure 09/21/2016 Ayaka Daniel 12:48:37 PM RT(R) Signatures Monitor : Ayaka Daniel RT Signature : Date : Time : [address] [place] [address]
[2016-09-21 09:16] VITALS: BP 104/55; Ht 180.3 cm; Wt 62.3 kg
[2016-09-21 09:39] LABS: BASOPHILS 0.8 % (0-2); EOSINOPHILS 3.8 % (0-7); HEMATOCRIT 32.5 % (42.0-54.0); HEMOGLOBIN 10.8 g/dL (13.5-17.5); IMMATURE GRANULOCYTES 0.3 % (0-5); LYMPHOCYTES 24.3 % (15-50); MCH 29.9 pg (26.0-34.0); MCHC 33.2 g/dL (31.0-37.0); MONOCYTES 4.1 % (2-11); NEUTROPHILS 66.7 % (40-80); RBC 3.61 10x6/uL (4.20-6.10); RDW 16.1 % (11.5-14.5); WBC 3.7 10x3/uL (4.8-10.8)
[2016-09-21 09:48] LABS: PLATELET COUNT 128 10x3/uL (130-400)
[2016-09-21 09:52] LABS: CALC OSMOLALITY 277 mosm/kg (275-300); CALCIUM 8.9 mg/dL (8.5-10.1); CARBON DIOXIDE 25.5 mmol/L (21.0-32.0); CHLORIDE - SERUM 105 mmol/L (98-107); CREATININE - SERUM 0.8 mg/dL (0.6-1.3); GLUCOSE 117 mg/dL (74-106); POTASSIUM - SERUM 3.8 mmol/L (3.5-5.1); SODIUM 139 mmol/L (136-145); UREA NITROGEN 10 mg/dL (7-18); eGFR NON AFRICAN AMERICAN > 90 mL/min (90-120)
[2016-09-21 10:02] LABS: INR 1.34 (0.85-1.17); PROTIME 16.5 SECONDS (11.6-15.0)
[2016-09-21 11:21] LABS: APTT 33.5 SECONDS (22.8-39.4)
[2016-09-21 12:23] LABS: BILIRUBIN - TOTAL 1.17 mg/dL (0.2-1.3)
== END 2016-09-21 13:20 | disposition home or self-care (01) ==
LOC: D.OPS 08:46 → D.RAD 11:00 → D.OPS 13:20
PROVIDERS: General Practice
DX: C19 Malignant neoplasm of rectosigmoid junction (principal); C79.9 Secondary malignant neoplasm of unspecified site; K83.1 Obstruction of bile duct; Z48.03 Encounter for change or removal of drains